=== PATIENT | female | born 1965 | race Caucasian/White ===

== ENCOUNTER 2016-07-26 15:51 | Observation (INO) | payer BC ==
[~2016-07-26] VITALS: Ht 172.7 cm; Wt 95.0 kg
--- NOTE | ~2016-07-26 | HEMODYNAMI ---
PATIENT:HENRY DELVALLE MEDICAL RECORD: [id number] : 63 [id number] ADMISSION DATE: 07/26/16 Generatedon:07/27/201615:52 Patient name: HENRY DELVALLE Patient #: [id number] : 1965 Date of study: 07/27/2016 Page: Of Hemodynamic Procedure Report Patient Data Patient Demographics Procedure consent was obtained First Name: HENRY Gender: Female Last Name: ADELIA : 1965 [facility] Initial: FABRICE Age: 51 year(s) Patient #: [id number] Race: Unknown SSN: [id number] Additional ID: [id number] Contact details Address: [address] [address] State: [place] City: [place] Zip code: [address] Past Medical History Allergies Allergen Reaction Date Comments Reported Other allergy 07/27/2016 Procardia, Macrodanatin Admission Admission Data Admission Date: 07/26/2016 Admission Time: 19:09 Arrival Date: 07/27/2016 Arrival Time: 0:00 Room #: D.2115 Lab Results Lab Result Date: 07/27/2016 Lab Result Time: 0:00 Biochemistry Name Units Result Min Max BUN mg/dl 12 --(-*--)-- 7 18 Creatinine mg/dl 0.7 --(*---)-- 0.6 1.3 CBC Name Units Result Min Max Hemoglobin g/dl 10.7 *-(----)-- 13.5 17.5 Procedure Procedure Types Cath Procedure Diagnostic Procedure LHC LHC w/Coronaries Miscellaneous Procedures Moderate Sedation up to 15 minutes Procedure Description Procedure Date Procedure Date: 07/27/2016 Procedure Start Time: 15:40 Procedure End Time: 15:50 Procedure Staff Name Function Chaparro Fagan MD Performing Physician Clarissa Bentley RT Scrub Teresa Menezes RN Nurse Flakita Orourke RT Monitor Procedure Data Cath Procedure Fluoroscopy Diagnostic fluoroscopy Total fluoroscopy Time: 1.5 time: 1.5 min min Diagnostic fluoroscopy Total fluoroscopy dose: 323 dose: 323 mGy mGy Contrast Material Contrast Material Type Amount (ml) Isovue 300 86 Entry Location Entry Primary Successful Side Size Upsize Upsize Entry Closure Figueroa ccessful Closure Location (Fr) 1 (Fr) 2 (Fr) Remarks Device Remarks Radial Right 6 Fr Mechanical tr b artery Short Compression Estimated blood loss: 10 ml Diagnostic catheters Device Type Used For End Catheter Placement Cordis RBL 4 catheter (NO Procedure CHARGE) Procedure Complications No complications Procedure Medications Medication Administration Route Dosage Oxygen NC 2 l/min Lidocaine 2% added to field 20 Heparin Flush Bag added to field 2 bags (1000units/500ml NS) 0.9% NaCl I.V. 100 ml/hr Radial Cocktail I.A. 1 syringe (Verapomil 2mg/Nitro 400mcg/Heparin 1500units) Versed I.V. 2 mg Fentanyl I.V. 100 mcg Versed I.V. 2 mg Fentanyl I.V. 100 mcg Versed I.V. 2 mg Fentanyl I.V. 100 mcg Versed I.V. 1 mg Fentanyl I.V. 50 mcg Hemodynamics Rest HGB: 10.7 (g/dl) Heart Rate: 108 (bpm) Pressure Samples Time Site Value (mmHg) Purpose Heart Use Rate(bpm) 15:43 LV 128/6,11 Snapshot 108 15:44 AO 117/90(103) Pullback 109 15:44 LV 118/14,14 Pullback 109 Gradients Valve Time Site 1 Site 2 Mean SEP/DFP Peak To Heart Use (mmHg) (sec/min) Peak Rate (mmHg) (bpm) Aortic 15:44 LV AO 0 4 1 109 118/14,14 117/90(103) Calculations Valve P-P Mean Valve Index Valve Source Name Gradient Area Flow (cm2) Aortic 1 0 1 0 Snapshots Pre Cath Intra NCS Post Cath Vital Signs Time Heart Resp SPO2 NIBP (mmHg) Rhythm Pain Sedation Rate (ipm) (%) Status Level (bpm) 15:30:58 96 17 95 165/92(147) NSR 0 (11) 10(A) , No pain 15:35:24 97 18 94 168/110(127) NSR 0 (11) 10(A) , No pain 15:39:51 95 19 95 174/108(131) NSR 0 (11) 10(A) , No pain 15:44:07 110 18 93 126/82(106) NSR 0 (11) 10(A) , No pain 15:48:18 110 16 94 128/90(124) NSR 0 (11) 10(A) , No pain 15:50:19 109 19 95 No Cuff NSR 0 (11) 10(A) , No pain Medications Time Medication Route Dose Verified Delivered Reason Notes Effectiveness by by 15:30:44 Oxygen NC 2 l/min Chaparro Buffie used for [facility]. Fady Menezes RN procedure 15:30:50 Lidocaine 2% added 20ml Chaparro Chaparro for local to vial [facility] anesthetic field MD KILPATRICK 15:30:56 Heparin Flush added 2 bags Chaparro Chaparro used for Bag to [facility] procedure (1000units/500ml field MD KILPATRICK NS) 15:39:20 Versed I.V. 2 mg Chaparro Buffie for sedation [facility] Fady Menezes RN, MD 15:39:31 Fentanyl I.V. 100 mcg Chaparro Buffie for sedation [facility] Fady Menezes RN, MD 15:42:13 Radial Cocktail I.A. 1 Chaparro Chaparro for (Verapomil syringe [facility] vasodilation 2mg/Nitro MD KILPATRICK 400mcg/Heparin 1500units) 15:42:35 Versed I.V. 2 mg Chaparro Buffie for sedation [facility] Fady Menezes RN, MD 15:42:39 Fentanyl I.V. 100 mcg Chaparro Buffie for sedation [facility]. Fady Menezes RN, MD 15:44:06 0.9% NaCl I.V. 100 Chaparro Buffie Per ml/hr St. Fady guerra MD 15:44:42 Versed I.V. 2 mg Chaparro Buffie for sedation [facility]. Fady Menezes RN, MD 15:44:46 Fentanyl I.V. 100 mcg Chaparro Buffie for sedation [facility]. Fady Menezes RN, MD 15:48:28 Versed I.V. 1 mg Chaparro Buffie for sedation [facility]. Fady Menezes RN, MD 15:48:33 Fentanyl I.V. 50 mcg Chaparro Buffie for sedation St. Fady Menezes RN, MD Procedure Log Time Note 15:03:43 Arrival Date: 07/27/2016 12:00:00 AM 15:04:05 Diagnostic Cath Status : Elective 15:08:26 Lab Result : Hemoglobin 10.7 g/dl 15:08: Lab Result : Creatinine 0.7 mg/dl 15:08: Lab Result : BUN 12 mg/dl 15:08:39 Teresa Menezes RN sent for patient. Start room use. 15:08:40 Time tracking: Regular hours 15:08:45 Plan of Care:Hemodynamics will remain stable., Cardiac rhythm will remain stable., Comfort level will be maintained., Respiratory function will remain adequate., Patient/ family verbilizes understanding of procedure., Procedure tolerated without complication., Recovers from procedure without complications.. 15:08:56 Patient received from Med II to CCL 3 Alert and oriented. Tansferred to table in Supine position. 15:09:03 H&P Date Dictated: 07/27/2016 Within 30 days and on chart.. 15:09:05 Pre-procedure instructions explained to patient. 15:09:07 Family in waiting room. 15:09:10 Patient NPO since Midnight. 15:09:31 Patient allergic to Other allergyProcardia, Macrodanatin 15:26:19 Warm blankets applied, and georgiana hugger turned on for patient comfort. 15:26:20 Correct patient and procedure confirmed by team. 15:26:21 Signed procedure consent form obtained from patient. 15:26:22 ECG and BP/O2 sat monitors applied to patient. 15:29:44 Vital chart was started 15:29:45 Baseline sample Acquired. 15:29:50 Rhythm: sinus rhythm 15:29:52 Full Disclosure recording started 15:30:07 Is the patient allergic to Iodine/contrast media? No. 15:30:14 Was the patient premedicated? No 15:30:15 Is patient on blood thinner?No 15:30:19 Patient diabetic? Yes. 15:30:20 If diabetic: On Metformin? Yes 15:30:24 If on Metformin: Last Dose? 07/26/2016 15:30:35 Snore? Yes 15:30:36 Sleep apnea? Yes 15:30:38 Deviated septum? No 15:30:39 Opens mouth fully? Yes 15:30:40 Sticks out tongue? Yes 15:30:44 Oxygen 2 l/min NC was given by Teresa Menezes RN; used for procedure; 15:30:47 Patient pain scale 0/10 ?. 15:30:50 Lidocaine 2% 20ml vial added to field was given by Chaparro Fagan MD; for local anesthetic; 15:30:55 IV patent on arrival in left forearm with 0.9% NaCl at O. 15:30:56 Heparin Flush Bag (1000units/500ml NS) 2 bags added to field was given by Chaparro Fagan MD; used for procedure; 15:31:00 Lab results completed and on chart. 15:31:04 Right Radial & Right Groin area was prepped with chlora-prep and draped in sterile fashion 15:31: Alarms reviewed by R. N. 15:31:05 Sharps counted by scrub and verified by R.N. 15:31:10 Physician paged 15::55 Use device set Radial Dx 15:32:00 Acist Syringe opened to sterile field. 15:32:00 Medline Cath Pack opened to sterile field. 15:32:01 Bag Decanter opened to sterile field. 15:32:02 Terumo 6Fr Slender Glidesheath opened to sterile field. 15:32:03 St Patel 260cm J .035 wire opened to sterile field. 15:32:04 Acist Hand Control opened to sterile field. 15:32:04 Acist Manifold opened to sterile field. 15:32:05 Tegaderm 4 x 4 opened to sterile field. 15:38:01 Physician arrived 15:38:01 --------ALL STOP TIME OUT------ 15:38:02 Final Timeout: patient, procedure, and site verified with staff and physician. All members of the team are in agreement. 15:38:04 Right Radial & Right Groin site verified by team. 15:38:08 Physical assessment completed. ASA score P 2 - A patient with mild systemic disease as per Chaparro Fagan MD. 15:38:11 Sedation plan: IV Moderate Sedation Versed, Fentanyl 15:39:20 Versed 2 mg I.V. was given by Teresa Menezes RN; for sedation; 15:39:31 Fentanyl 100 mcg I.V. was given by Teresa Menezes RN; for sedation; 15:39:52 Procedure started. 15:40:19 Local anesthetic to right radial artery with Lidocaine 2% by Chaparro Fagan MD.INITIAL ACCESS ONLY 15:40:28 A 6 Fr Short sheath was inserted into the Right Radial artery 15:42:05 Zero performed for pressure channel P1 15:42:13 Radial Cocktail (Verapomil 2mg/Nitro 400mcg/Heparin 1500units) 1 syringe I.A. was given by Chaparro Fagan MD; for vasodilation; 15:42:17 Zero performed for pressure channel P1 15:42:35 Versed 2 mg I.V. was given by Teresa Menezes RN; for sedation; 15:42:39 Fentanyl 100 mcg I.V. was given by Teresa Menezes RN; for sedation; 15:42:48 Zero performed for pressure channel P1 15:42:51 Zero performed for pressure channel P1 15:43:24 LV angiography performed. 15:43:44 LV gram done using CALVO 15:43:50 EF : 55 % 15:44:06 0.9% NaCl 100 ml/hr I.V. was given by Teresa Menezes RN; Per physician; 15:44:20 A AIRSIS RBL 4 catheter (NO CHARGE) was advanced over the wire and used for Procedure. 15:44:42 Versed 2 mg I.V. was given by Teresa Menezes RN; for sedation; 15:44:44 LCA angiography performed. 15:44:46 Fentanyl 100 mcg I.V. was given by Teresa Menezes RN; for sedation; 15:46:28 RCA angiography performed. 15:47:01 Catheter removed. 15:47:14 Terumo TR Band Standard opened to sterile field. 15:47:32 Sheath removed intact; hemostasis achieved with Mechanical Compression to the Right Radial artery. 15:47:34 Procedure ended.(Physican Out) 15:47:49 Fluoroscopy time 01.50 minutes. 15:48:05 Fluoroscopy dose: 323 mGy 15:48:05 Flurop Dose total: 323 15:48:13 Contrast amount:Isovue 300 86ml. 15:48:26 Sharps counted by scrub and verified by R.N. 15:48:28 Versed 1 mg I.V. was given by Teresa Menezes RN; for sedation; 15:48:33 Fentanyl 50 mcg I.V. was given by Teresa Menezes RN; for sedation; 15:48:36 TR band inflated with 10cc of air. 15:49:02 Post right radial artery:stable 15:49:13 Post Procedure Pulses reassessed and unchanged 15:49:20 Post-procedure physical assessment completed. ASA score P 2 - A patient with mild systemic disease as per Chaparro Fagan MD. 15:49:25 Post procedure rhythm: unchanged. 15:49:29 Estimated blood loss: 10 ml 15:49:31 Post procedure instruction explained to patient.Patient verbalizes understanding. 15:49:38 Procedure and supply charges have been captured, reviewed, submitted and are correct. 15:49:58 Procedure Complication : No complications 15:50:01 Vital chart was stopped 15:50:04 Report given to [facility] II. 15:50:09 Patient transfered to [facility] with Bed. 15:50:12 Procedure ended. 15:50:12 Full Disclosure recording stopped 15:50:17 End room use (Document Last) Device Usage Item Name Manufacture Quantity Catalog Hospital Part Current Minimal Lot# / Number Charge Number Stock Stock Serial# Code Acist Acist 1 97782 [id number] [id number] 348482 20 Syringe Medical [employer] Inc Medline Cardinal 1 [id number] 037310 16044 442376 5 Cath Pack Health Bag Microtek 1 2002S [id number] 84546 226920 5 Decanter Medical Inc. Terumo 6Fr Terumo 1 [id number] 847049 914755 059218 [address] St Patel 1 694714 749372 597125 679643 30 260cm J .035 wire Acist Hand Acist 1 08370 246998 242846 263282 5 Control Medical [employer] Inc Acist Acist 1 05522 355364 928759 748398 5 Manifold Medical [employer] Inc Tegaderm 4 3M 1 1626W 796329 000818 891251 5 x 4 Cordis RBL Cardinal 1 [id number] 134277 561852 5 4 catheter Health (NO CHARGE) Terumo TR Terumo 1 [id number] 479741 326853 542891 40 Band Standard Signature Audit Counselor Stage Time Signature Unsigned Intra-Procedure 07/27/2016 Flakita Orourke 3:52:48 PM RT(R) Signatures Monitor : Flakita Orourke Signature : RT Date : Time : [facility] [address] [place] [address]
[~2016-07-26 15:51] MED LIST: ATIVAN1 MG PO; BUPROPION XL300 MG PO; DURAGESIC1 PATCH .3 TRANSDERM; ESTRACE2 MG PO; GLUCOPHAGE500 MG PO; HYDROCODONE-APA1 TAB PO; LANTUS SOL100 UNIT/1 SC; METOPROLOL TAR100 M1 PO; MEVACOR PO; NEURONTIN600 MG PO; PHENERGAN25 M1 PO; PREVACID30 MG PO; REGLAN10 MG PO; ZANAFLEX4 MG PO
[2016-07-26 17:39] LABS: BASOPHILS 0.2 % (0.0-2.0); EOSINOPHILS 2.5 % (0-7); HEMATOCRIT 34.1 % (36.0-48.0); HEMOGLOBIN 10.7 g/dL (12-16); IMMATURE GRANULOCYTES 0.4 % (0-5); LYMPHOCYTES 17.5 % (15-50); MCH 30.8 pg (26.0-34.0); MCHC 31.4 g/dL (31.0-37.0); MCV 98.3 fL (80.0-100.0); MEAN PLATELET VOLUME 10.6 fL (7.4-10.4); MONOCYTES 6.5 % (2-11); NEUTROPHILS 72.9 % (40-80); PLATELET COUNT 235 10x3/uL (130-400); RBC 3.47 10x6/uL (4.00-5.40); RDW 14.4 % (11.5-14.5); WBC 14.1 10x3/uL (4.8-10.8)
[2016-07-26 17:56] LABS: ALBUMIN 3.5 g/dL (3.4-5.0); ALKALINE PHOSPHATASE 96 U/L (46-116); ALT (SGPT) 28 U/L (10-68); BILIRUBIN - TOTAL 0.11 mg/dL (0.2-1.3); CALC OSMOLALITY 274 mosm/kg (275-300); CALCIUM 9.4 mg/dL (8.5-10.1); CARBON DIOXIDE 26.6 mmol/L (21.0-32.0); CHLORIDE - SERUM 99 mmol/L (98-107); CREATININE - SERUM 0.7 mg/dL (0.6-1.3); POTASSIUM - SERUM 4.2 mmol/L (3.5-5.1); PROTEIN - SERUM 6.9 g/dL (6.4-8.2); SODIUM 137 mmol/L (136-145); UREA NITROGEN 12 mg/dL (7-18); eGFR NON AFRICAN AMERICAN > 90 mL/min (90-120)
[2016-07-26 18:07] LABS: GLUCOSE 121 mg/dL (74-106)
[2016-07-26 18:11] LABS: CHOL - HDL RATIO 6.2 ratio (2.3-4.1); CHOLESTEROL, TOTAL 256 mg/dL (0-200); CKMB 1.6 U/L (0.0-3.6); CREATINE KINASE 88 UL (21-215); HDL CHOLESTEROL 41 mg/dL (32-96); LDL CHOLESTEROL 144 mg/dL (0-100); LDL-HDL RATIO 3.5 ratio (1.5-3.5); TRIGLYCERIDE 356 mg/dL (30-200)
[2016-07-26 18:30] LABS: TROPONIN-I < 0.017 ng/mL (0.000-0.060)
[2016-07-26 20:00] VITALS: BP 185/96
--- NOTE | 2016-07-26 20:25 | NUR ---
RECEIVED PT TO ROOM 2114 ALERT O X3. ASSESS AND HISTORY COMPLETE. HOME MEDS REVIEWED WITH PT AND MEDREC UPDATED.
[2016-07-26] MEDS ORDERED: OXYCONTIN30 MG PO (20:29)
[2016-07-26] MEDS ORDERED: NEXIUM40 MG PO (20:32)
[2016-07-26] MEDS ORDERED: ZOLOFT50 MG PO (20:33)
[2016-07-26] MEDS ORDERED: ZOLOFT100 MG PO (20:33)
[2016-07-26] MEDS ORDERED: HUMALOG 30100 UNITS/ SC (20:34)
[2016-07-26 20:39] VITALS: BP 185/96; BMI 31.8
--- NOTE | 2016-07-26 23:37 | NUR ---
BANJO REPAIRER AT BEDSIDE FOR VS, NEEDS ADDRESSED AT THIS TIME. CALL LIGHT IN REACH. CONT TO MONITOR.
[2016-07-27] VITALS: BP 187/89
[2016-07-27 04:00] VITALS: BP 191/98
[2016-07-27 07:52] VITALS: BP 184/95
[2016-07-27 09:55] LABS: BASOPHILS 0.1 % (0.0-2.0); EOSINOPHILS 2.4 % (0-7); HEMATOCRIT 34.1 % (36.0-48.0); HEMOGLOBIN 10.7 g/dL (12-16); IMMATURE GRANULOCYTES 0.3 % (0-5); LYMPHOCYTES 21.2 % (15-50); MCH 30.3 pg (26.0-34.0); MCHC 31.4 g/dL (31.0-37.0); MCV 96.6 fL (80.0-100.0); MEAN PLATELET VOLUME 10.3 fL (7.4-10.4); MONOCYTES 5.5 % (2-11); NEUTROPHILS 70.5 % (40-80); PLATELET COUNT 231 10x3/uL (130-400); RBC 3.53 10x6/uL (4.00-5.40); RDW 14.1 % (11.5-14.5)
[2016-07-27 10:08] LABS: WBC 9.1 10x3/uL (4.8-10.8)
[2016-07-27 10:17] LABS: CALC OSMOLALITY 273 mosm/kg (275-300); CALCIUM 9.6 mg/dL (8.5-10.1); CARBON DIOXIDE 26.4 mmol/L (21.0-32.0); CHLORIDE - SERUM 97 mmol/L (98-107); CREATININE - SERUM 0.7 mg/dL (0.6-1.3); GLUCOSE 226 mg/dL (74-106); POTASSIUM - SERUM 4.5 mmol/L (3.5-5.1); SODIUM 134 mmol/L (136-145); UREA NITROGEN 11 mg/dL (7-18); eGFR NON AFRICAN AMERICAN > 90 mL/min (90-120)
--- NOTE | 2016-07-27 10:37 | NUR ---
TELEMETRY SR. NO C/O C/P NOTED. NPO FOR [facility]. CONSENTS SIGNED.
[2016-07-27 11:34] VITALS: BP 185/99
--- NOTE | 2016-07-27 15:30 | NUR ---
PRE-OPS GIVEN. TO RFID TECHNICIAN BY BED.
--- NOTE | 2016-07-27 16:12 | NUR ---
BACK FROM TODDLER GUIDE. VS WNL. RIGHT WRIST STABLE WITH TR BAND INTACT. WILL MONITOR.
[2016-07-27] MEDS ORDERED: PRAVACHOL20 MG PO (16:31)
--- NOTE | 2016-07-27 18:10 | NUR ---
TR BAND DCD WITHOUT BLEEDING OR HEMATOMA NOTED.
--- NOTE | 2016-07-27 18:17 | NUR ---
IV AND TELEMETRY DCD. DC PLANS GIVEN. UNDERSTANDING VOICED. ESCORTED TO CAR BY W/C.
--- NOTE | 2016-07-30 10:40 | HP ---
PATIENT: GALA BUNN MEDICAL RECORD: [id number] ACCOUNT: [id number] LOCATION:[facility].2115 : 63 ADMISSION DATE: 07/26/16 HISTORY AND PHYSICAL EXAMINATION HISTORY OF PRESENT ILLNESS: Gala Bunn is a 51-year-old lady with a history of hypertension. She has an onset yesterday of chest tightness and pressure, accompanied by marked nausea, dizziness, diaphoresis and been having intermittent problems with her blood sugars as of late. She has some baseline dyspnea on exertion, not been exercising. Enzymes are currently negative. ECG without acute change. Has had a history of hyperlipidemia, strong history of coronary artery disease, which include arthritis. PAST MEDICAL HISTORY: Includes: 1. History of hypertension. 2. Peripheral neuropathy. 3. Gastroesophageal reflux disease. 4. Diabetes mellitus. MEDICATIONS: Includes metformin 500 b.i.d., Reglan 10 and 20 a.c. and q.h.s., ____ 40 q. day, OxyContin 30 q.12, Ativan 1 mg b.i.d., Alsip 10/325 q. day, Neurontin 600 t.i.d., Lopressor 100 q. day, Phenergan p.r.n. ALLERGIES: PROCARDIA, WHICH CAUSES EDEMA, MACRODANTIN CAUSES RASH. SOCIAL HISTORY: She lives here in [place]. Currently employed. She takes care of her ADLs, but no exercise program. REVIEW OF SYSTEMS: The patient reports easy bruising but reports no swollen glands. The patient reports no fever, no night sweats, no significant weight gain, no significant weight loss. No significant exercise tolerance. The patient reports no dry eyes, no irritation, no vision change. Patient reports no difficulty hearing and no ear pain. Patient reports no frequent nose bleeds or nose and sinus problems. Patient reports on arm pain on exertion. No shortness of breath while lying down. No history of heart murmur. Patient reports no cough, no wheezing or coughing up blood. Patient reports no abdominal pain, no vomiting. Normal appetite. No diarrhea and not vomiting blood. No nausea and no constipation. Patient reports no incontinence. No difficulty urinating. No hematuria. No increased frequency. Patient reports no muscle aches. No weakness, no arthralgias, no back pain. No swelling of the extremities. Patient reports no abnormal mole, no jaundice, no rashes. Reports no loss of consciousness. No weakness and no numbness. No seizures, dizziness, or headaches. The patient reports no depression, no sleep disturbance, feeling safe in a relationship and no alcohol abuse. Patient reports on fatigue. Reports no runny nose or sinus pressure. No itching, no hives, and no frequent sneezing. PHYSICAL EXAMINATION: GENERAL: Pleasant female in no acute distress, appears stated age, [age], 77 and regular. HEENT: Normocephalic, atraumatic. NECK: No JVD or bruit. HEART: Regular. LUNGS: Weiner clear. ABDOMEN: Soft, nontender. HISTORY AND PHYSICAL [id number] [facility] EXTREMITIES: Pulses 2+ with no edema. DIAGNOSTIC DATA: ECG without acute change. IMPRESSION: Acute coronary syndrome, multiple risk factors. PLAN: For diagnostic angiography, intervention based on above. TRANSINT:[id number] Voice Confirmation ID: [id number] DOCUMENT ID: [id number] PER SCHROEDER MD at 1040 CC: [id number] DICTATION DATE: 07/27/16 08 FILLER BLENDER: 07/27/16 1018 DIS IN 07/27/16 [id number] [place] [address]
--- NOTE | 2016-07-30 10:40 | OP ---
PATIENT NAME: HENRY DELVALLE MEDICAL RECORD: [id number] :63 LOCATION:D.M2 D.2115 ADMISSION DATE:07/26/16 SURGEON: PER SCHROEDER MD DATE OF OPERATION: 07/27/2016 PROCEDURE: Left heart catheterization, selective coronary angiography, right radial approach. CATHETERS: A 5 sheath, Ranjit catheter. The procedure was tolerated and the patient returned to the noel. Sheath was removed. TR band was placed. FINDINGS: Left ventriculography in the 30-degree CALVO view: Normal wall motion and normal systolic function. CORONARY ANATOMY: LEFT MAIN: Left main free of disease. LAD: LAD is free of disease in the diagonal system. CIRCUMFLEX: Free of disease in the marginal system. RIGHT CORONARY ARTERY: At distal PDA shows a total occlusion with left to right collaterals. IMPRESSION: Single-vessel disease involving distal PDA. PLAN: For medical management. We will add statin therapy at this point. TRANSINT:[id number] Voice Confirmation ID: [id number] DOCUMENT ID: [id number] PER SCHROEDER MD at 1040 CC: [id number] DICTATION DATE: 07/27/16 1556 DIRECTOR OF LOSS PREVENTION: 07/27/16 2315 DIS IN 07/27/16 [facility] [address] [place] [address]
--- NOTE | 2016-08-19 14:36 | DS ---
PATIENT:HENRY DELVALLE :63 MEDICAL RECORD: [id number] DISCHARGE SUMMARY ADMISSION DATE: 07/26/16 DISCHARGE DATE: 07/27/16 DISCHARGE DIAGNOSES: 1. Acute coronary syndrome/small vessel disease. 2. Dyslipidemia. 3. Diabetes mellitus. 4. Hypertension. BRIEF HISTORY AND HOSPITAL COURSE: A 51-year-old female with a history of diabetes mellitus, admitted with acute coronary syndrome, found to have small vessel disease, discharged home in good condition on medical therapy. ACTIVITY: As tolerated. DIET: An 1800 calorie ADA diet. FOLLOWUP: In the office in 2-3 weeks. TRANSINT:[id number] Voice Confirmation ID: [id number] DOCUMENT ID: [id number] PER SCHROEDER MD at 1436 CC: [id number] DICTATION DATE: 08/17/16 1435 TIGER MACHINE OPERATOR: 08/18/16 0448 DIS IN 07/27/16 [id number] [place] [address]
== END 2016-07-27 18:17 | disposition home or self-care (01) ==
LOC: D.ER 15:51 → OBSVTIME 19:09 → D.M2 19:09
PROVIDERS: Emergency Medicine; ADMIT Internal Medicine Interventional Cardiology
DX: I24.9 Acute ischemic heart disease, unspecified (principal); I25.10 Atherosclerotic heart disease of native coronary artery without angina pectoris; E11.9 Type 2 diabetes mellitus without complications; K21.9 Gastro-esophageal reflux disease without esophagitis

== ENCOUNTER 2018-05-01 14:03 | Inpatient (IN) | payer BC ==
[~2018-05-01] VITALS: Ht 172.7 cm; Wt 82.1 kg
--- NOTE | ~2018-05-01 | MORECARE ---
CASE MANAGEMENT DISCHARGE SUMMARY PATIENT: HENRY DELVALLE UNIT: [id number] ADM DATE: 05/01/18 AGE: 53 : 63 SEX: F ROOM/BED: D.2201 AUTHOR: SHER DESAI PHYSICIAN: REFERRING PHYSICIAN: BINU CAICEDO MD DATE OF SERVICE: 05/05/18 Discharge Plan Patient Name: HENRY DELVALLE Facility: [facility]:[place] : 1965 Planned Disposition: Home Anticipated Discharge Date: Discharge Date: Expected LOS: Initial Reviewer: [email or web address] Initial Review Date: 05/01/2018 Generated: 05/05/18 5:49 pm Comments DCP- Discharge Planning Updated by [email or web address]: Zena Escobar on 05/05/18 3:[address] Patient Name: HENRY DELVALLE Encounter No: [id number] : 1965 Primary Insurance: [employer] PPO Anticipated DC Date: Planned Disposition: Home External Planned Provider: : DCP follow-up note: Patient and family in agreement with discharge plan. No changes to plan. Case management will follow and assist as needed. Zena Escobar DCP- Discharge Planning Updated by [email or web address]: Zena Escobar on 05/02/18 3:[address] Patient Name: HENRY DELVALLE Admission Status: ER Accout number: [id number] Admission Date: 05-01-2018 : 1965 Admission Diagnosis: Attending: BINU CAICEDO Current LOS: 1 Anticipated DC Date: Planned Disposition: Home Primary Insurance: [employer] [place] PPO Discharge Planning Comments: CM met with patient to assess discharge planning needs. Patient lives independently at home with her and plans to return there at DC. She stated that she is safe to go back home. She denies any HH or DME needs and does not need any when she is DC. CM will continue to follow and assist with DC planning Technical Support Engineer: Zena Escobar DCPIA - Discharge Planning Initial Assessment Updated by [email or web address]: Zena Escobar on 05/02/18 4:37 pm * Is the patient Alert and Oriented? Yes * How many steps to enter\exit or inside your home? 15 * PCP BRETT * Pharmacy [facility] * Preadmission Environment Home with Family * ADLs Independent * Equipment None * List name and contact numbers for known caregivers / representatives who currently or will assist patient after discharge: MARIANNE (SPOSE) [phone] * Verbal permission to speak to the caregivers and representatives has been obtained from the patient. Yes * Community resources currently utilized None * Additional services required to return to the preadmission environment? No * Can the patient safely return to the preadmission environment? Yes * Has this patient been hospitalized within the prior 30 days at any hospital? No Last DP export: 05/02/18 3:40 p Patient Name: HENRY DELVALLE Page [id number] at 1649 All edits/amendments must be made on the electronic document DICTATION DATE: 05/05/181647 DRY MILL WORKER: [email or web address] 05/05/181647 RPT#: [id number] DC DATE: STATUS: ADM IN [facility] [address] [place] [address] END OF REPORT
--- NOTE | ~2018-05-01 | MORECARE ---
CASE MANAGEMENT DISCHARGE SUMMARY PATIENT: HENRY DELVALLE UNIT: [id number] ADM DATE: 05/01/18 AGE: 53 : 63 SEX: F ROOM/BED: D.2201 AUTHOR: SHER DESAI PHYSICIAN: REFERRING PHYSICIAN: BINU CAICEDO MD DATE OF SERVICE: 05/08/18 Discharge Plan Patient Name: HENRY DELVALLE Facility: [facility]:[place] : 1965 Planned Disposition: Home Anticipated Discharge Date: Discharge Date: 05/05/2018 Expected LOS: 0 Initial Reviewer: [email or web address] Initial Review Date: 05/01/2018 Generated: 05/08/18 12:29 pm Comments DCP- Discharge Planning Updated by [email or web address]: Zena Escobar on 05/05/18 3:[address] Patient Name: HENRY DELVALLE Encounter No: [id number] : 1965 Primary Insurance: [employer] PPO Anticipated DC Date: Planned Disposition: Home External Planned Provider: : DCP follow-up note: Patient and family in agreement with discharge plan. No changes to plan. Case management will follow and assist as needed. Zena Escobar DCP- Discharge Planning Updated by [email or web address]: Zena Escobar on 05/02/18 3:[address] Patient Name: HENRY DELVALLE Admission Status: ER Accout number: [id number] Admission Date: 05-01-2018 : 1965 Admission Diagnosis: Attending: BINU CAICEDO Current LOS: 1 Anticipated DC Date: Planned Disposition: Home [facility] Discharge Planning Comments: CM met with patient to assess discharge planning needs. Patient lives independently at home with her and plans to return there at DC. She stated that she is safe to go back home. She denies any HH or DME needs and does not need any when she is DC. CM will continue to follow and assist with DC planning Distributor Operator: Zena Escobar DCPIA - Discharge Planning Initial Assessment Updated by [email or web address]: Zena Escobar on 05/02/18 4:37 pm * Is the patient Alert and Oriented? Yes * How many steps to enter\exit or inside your home? 15 * PCP BRETT * Pharmacy [facility] * Preadmission Environment Home with Family * ADLs Independent * Equipment None * List name and contact numbers for known caregivers / representatives who currently or will assist patient after discharge: MARIANNE ([employer]) [phone] * Verbal permission to speak to the caregivers and representatives has been obtained from the patient. Yes * Community resources currently utilized None * Additional services required to return to the preadmission environment? No * Can the patient safely return to the preadmission environment? Yes * Has this patient been hospitalized within the prior 30 days at any hospital? No Last DP export: 05/05/18 3:49 p Patient Name: HENRY DELVALLE Page [phone] at 1129 All edits/amendments must be made on the electronic document DICTATION DATE: 05/08/181127 CORE DRILL OPERATOR: [email or web address] 05/08/181127 RPT#: [id number] DC DATE:05/05/18 STATUS: DIS IN [facility] [address] [place] [address] END OF REPORT
--- NOTE | ~2018-05-01 | MORECARE ---
CASE MANAGEMENT DISCHARGE SUMMARY PATIENT: HENRY DELVALLE UNIT: [id number] ADM DATE: 05/01/18 AGE: 53 : 63 SEX: F ROOM/BED: D.2201 AUTHOR: SHER DESAI PHYSICIAN: REFERRING PHYSICIAN: BINU CAICEDO MD DATE OF SERVICE: 05/02/18 Discharge Plan Patient Name: HENRY DELVALLE Facility: [facility]:[place] : 1965 Planned Disposition: Home Anticipated Discharge Date: Discharge Date: Expected LOS: Initial Reviewer: [email or web address] Initial Review Date: 05/01/2018 Generated: 05/02/18 5:39 pm Comments DCP- Discharge Planning Updated by [email or web address]: Zena Escobar on 05/02/18 3:[address] Patient Name: HENRY DELVALLE Admission Status: ER Accout number: [id number] Admission Date: 05-01-2018 : 1965 Admission Diagnosis: Attending: BINU CAICEDO Current LOS: 1 Anticipated DC Date: Planned Disposition: Home Primary Insurance: [employer] PPO Discharge Planning Comments: CM met with patient to assess discharge planning needs. Patient lives independently at home with her and plans to return there at DC. She stated that she is safe to go back home. She denies any HH or DME needs and does not need any when she is DC. CM will continue to follow and assist with DC planning Shampooer: Zena Escobar DCPIA - Discharge Planning Initial Assessment Updated by [email or web address]: Zena Escobar on 05/02/18 4:37 pm * Is the patient Alert and Oriented? Yes * How many steps to enter\exit or inside your home? 15 * PCP [facility] * Pharmacy [facility] * Preadmission Environment Home with Family * ADLs Independent * Equipment None * List name and contact numbers for known caregivers / representatives who currently or will assist patient after discharge: MARIANNE ([facility] [place]) [phone] * Verbal permission to speak to the caregivers and representatives has been obtained from the patient. Yes * Community resources currently utilized None * Additional services required to return to the preadmission environment? No * Can the patient safely return to the preadmission environment? Yes * Has this patient been hospitalized within the prior 30 days at any hospital? No Patient Name: HENRY DELVALLE Page 76032 at 1640 All edits/amendments must be made on the electronic document DICTATION DATE: 05/02/181638 STAPLE CUTTER: [email or web address] 05/02/181638 RPT#: [id number] DC DATE: STATUS: ADM IN [facility] [address] [place] [address] END OF REPORT
--- NOTE | ~2018-05-01 | EC ---
PATIENT:HENYR DELVALLE DATE OF SERVICE: 05/01/18 SEX: F MEDICAL RECORD: [id number] DATE OF : 63 LOCATION:D[facility] [place] AGE OF PATIENT: 53 ADMISSION DATE: 05/01/18 REFERRING PHYSICIAN: INTERPRETING PHYSICIAN: PER SCHROEDER MD ECHOCARDIOGRAM REPORT ECHO CHARGES 4 ECHO COMPLETE Date: 05/04/18 CLINICAL DIAGNOSIS: HTN ECHOCARDIOGRAPHIC MEASUREMENTS (adult normal given) AC root (d.<3.7cm) 3.4 cm LV Septum d (<1.2 cm> 1.2 cm Valve Excursion 1.3 cm LV Septum (systole) 1.5 cm Left Atria (s.<4.0cm> 4.3 cm LVPW d(<1.2cm) 1.2 cm RV (d.<2.3cm) 3.4 cm LVPW (sytole) 1.6 cm LV diastole(<5.6CM) 5.2 cm MV E-F(>70mm/sec) cm LV systole 4.0 cm LVOT Diameter 1.8 cm MV exc.(>10mm) 1.6 cm Est.ejection fraction (50-75%) % DOPPLER: LVIT cm/sec A 132 cm/sec E 108 cm/sec LA cm/sec RVSP 36 mmHg LVOT 142 cm/sec AOP1/2T m/s Asc. Ao 174 cm/sec RVOT 89 cm/sec RA cm/sec PA 158 cm/sec AV Gradient Peak 12.13mmHg AV Mean 6.14 mmHg AV Area 2.6 cm MV Gradient Peak 7.36 mmHg MV Mean 2.48 mmHg MV Area cm COMMENTS: Bench Press Operator: 2 BRYNO MATHEW Manager Image: 3 Dr. Fagan TAPE# PACS Pericardial Effusion N DATE OF SERVICE: 05/04/2018 Adequate 2D echo, color flow and spectral Doppler, and M-mode. Borderline LVH. LV internal dimension is normal. Wall motion is normal. EF is greater than or equal to 55%. Aortic valve is tricuspid. No evidence of stenosis on Doppler interrogation. Left atrium dilated at 4.3 cm. Mitral valve shows no prolapse. Trace MR. Right-sided chambers grossly normal. Trace TR. TRANSINT:[id number] Voice Confirmation ID: [id number] DOCUMENT ID: [id number] ECHOCARDIOGRAM REPORT [id number] HENRY DELVALLE GREGORY A MD CC: [id number] DICTATION DATE: 05/04/18 1228 COMMUNICATIONS ENGINEERING TECHNICIAN: 05/04/18 1248 ADM IN [place] [id number] [place] [id number]
[~2018-05-01 14:03] MED LIST changes: +HUMALOG 30100 UNITS/ SC; -METOPROLOL TAR100 M1 PO; +METOPROLOL TART50 MG PO; +NEXIUM40 MG PO; +NORCO 10-325 TA1 TAB PO; +OXYCONTIN30 MG PO; +PRAVACHOL20 MG PO; +ZOLOFT100 MG PO; +ZOLOFT50 MG PO
[2018-05-01 15:30] VITALS: BP 99/48
[2018-05-01 15:35] LABS: HEMATOCRIT 32.4 % (36.0-48.0); HEMOGLOBIN 9.5 g/dL (12-16); MCH 23.8 pg (26.0-34.0); MCHC 29.3 g/dL (31.0-37.0); MCV 81.2 fL (80.0-100.0); MEAN PLATELET VOLUME 11.3 fL (7.4-10.4); PLATELET COUNT 278 10x3/uL (130-400); RBC 3.99 10x6/uL (4.00-5.40); WBC 21.5 10x3/uL (4.8-10.8)
[2018-05-01 15:52] LABS: ALBUMIN 3.5 g/dL (3.4-5.0); ALKALINE PHOSPHATASE 131 U/L (46-116); ALT (SGPT) 33 U/L (10-68); BILIRUBIN - TOTAL 0.47 mg/dL (0.2-1.3); CALC OSMOLALITY 272 mosm/kg (275-300); CALCIUM 9.6 mg/dL (8.5-10.1); CARBON DIOXIDE 22.7 mmol/L (21.0-32.0); CHLORIDE - SERUM 96 mmol/L (98-107); CREATININE - SERUM 1.7 mg/dL (0.6-1.3); GLUCOSE 203 mg/dL (74-106); POTASSIUM - SERUM 5.2 mmol/L (3.5-5.1); PROTEIN - SERUM 7.4 g/dL (6.4-8.2); SODIUM 131 mmol/L (136-145); UREA NITROGEN 24 mg/dL (7-18); eGFR NON AFRICAN AMERICAN 33 mL/min (90-120)
[2018-05-01 16:01] LABS: CKMB 2.2 U/L (0.0-3.6); CREATINE KINASE 74 UL (21-215); MAGNESIUM - SERUM 1.7 mg/dL (1.8-2.4); TROPONIN-I < 0.017 ng/mL (0.000-0.060)
[2018-05-01 16:07] LABS: APPEARANCE HAZY (CLEAR); BILIRUBIN NEGATIVE (NEGATIVE); COLOR DK YELLOW (YELLOW); GLUCOSE NEGATIVE (NEGATIVE); KETONE NEGATIVE (NEGATIVE); NITRITE NEGATIVE (NEGATIVE); PROTEIN TRACE mg/dL (NEGATIVE); SPECIFIC GRAVITY 1.025 (1.005-1.020); UROBILINOGEN NORMAL (NORMAL)
[2018-05-01 16:10] LABS: UDS - AMPHET POSITIVE QUAL (NEGATIVE); UDS - BARB NEGATIVE QUAL (NEGATIVE); UDS - BENZO POSITIVE QUAL (NEGATIVE); UDS - COCAINE NEGATIVE QUAL (NEGATIVE); UDS - OPIATE POSITIVE QUAL (NEGATIVE); UDS - PCP NEGATIVE QUAL (NEGATIVE); UDS - THC NEGATIVE QUAL (NEGATIVE)
[2018-05-01 16:11] LABS: RED CELLS - URINE OCC /hpf (0-5); WHITE CELLS - URINE OCC /hpf (0-5)
[2018-05-01 16:13] LABS: BACTERIA MANY /hpf (NONE SEEN)
[2018-05-01 16:30] VITALS: BP 91/47
[2018-05-01 16:56] LABS: EOSINOPHILS 3 % (0-7); LYMPHOCYTES 3 % (15-50); MONOCYTES 1 % (2-11); NEUTROPHILS 88 % (40-80); PLATELET ESTIMATE NORMAL
[2018-05-01 17:30] VITALS: BP 98/45
[2018-05-01 18:30] VITALS: BP 102/49
[2018-05-02 02:14] VITALS: BP 97/50
[2018-05-02 05:08] LABS: BASOPHILS 0.1 % (0-2); HEMATOCRIT 26.2 % (36.0-48.0); HEMOGLOBIN 7.7 g/dL (12-16); IMMATURE GRANULOCYTES 0.3 % (0-5); LYMPHOCYTES 6.7 % (15-50); MCH 23.8 pg (26.0-34.0); MCHC 29.4 g/dL (31.0-37.0); MCV 81.1 fL (80.0-100.0); MEAN PLATELET VOLUME 11.2 fL (7.4-10.4); MONOCYTES 6.9 % (2-11); RBC 3.23 10x6/uL (4.00-5.40); RDW 17.2 % (11.5-14.5)
[2018-05-02 05:33] LABS: PLATELET COUNT 218 10x3/uL (130-400); WBC 15.4 10x3/uL (4.8-10.8)
[2018-05-02 05:45] LABS: ALKALINE PHOSPHATASE 145 U/L (46-116); BILIRUBIN - TOTAL 0.29 mg/dL (0.2-1.3); CALCIUM 7.6 mg/dL (8.5-10.1); CARBON DIOXIDE 21.5 mmol/L (21.0-32.0); CHLORIDE - SERUM 102 mmol/L (98-107); CREATINE KINASE 55 UL (21-215); CREATININE - SERUM 1.4 mg/dL (0.6-1.3); PROTEIN - SERUM 5.8 g/dL (6.4-8.2); SODIUM 135 mmol/L (136-145); TROPONIN-I < 0.017 ng/mL (0.000-0.060); UREA NITROGEN 25 mg/dL (7-18); eGFR NON AFRICAN AMERICAN 41 mL/min (90-120)
[2018-05-02 05:47] LABS: ALBUMIN 2.4 g/dL (3.4-5.0); ALT (SGPT) 44 U/L (10-68); CALC OSMOLALITY 274 mosm/kg (275-300); GLUCOSE 112 mg/dL (74-106); POTASSIUM - SERUM 4.1 mmol/L (3.5-5.1)
[2018-05-02 06:00] VITALS: BP 92/48
[2018-05-02 08:19] VITALS: BP 94/51
[2018-05-02 09:03] LABS: % SATURATION 15 % (15-55); IRON 49 ug/dl (35-150); TOTAL IRON BIND CAPACITY 325 ug/dl (260-445); UNSAT IRON BIND CAPACITY 276 ug/dl (150-375)
[2018-05-02 11:39] VITALS: BP 105/54
[2018-05-02] MEDS ORDERED: XARELTO10 MG PO (11:41)
[2018-05-02] MEDS ORDERED: DEXILANT60 MG PO (11:45)
[2018-05-02] MEDS ORDERED: LOTENSIN20 MG PO (11:47)
[2018-05-02] MEDS ORDERED: CATAPRES0.1 MG PO (11:48)
[2018-05-02] MEDS ORDERED: HYDROCHLOROTHIA25 MG PO (11:49)
[2018-05-02] MEDS ORDERED: SONATA5 MG PO (11:51)
[2018-05-02] MEDS ORDERED: BUTRANS1 EAC3 TRANSDERM (11:53)
[2018-05-02] MEDS ORDERED: ADIPEX-P37.5 M1 PO (11:54)
[2018-05-02] MEDS ORDERED: COLACE50 MG/5 ML (11:55)
[2018-05-02] MEDS ORDERED: ZYRTEC10 MG PO (11:56)
[2018-05-02] MEDS ORDERED: NITROGLYCERIN6.5 MG TP (11:58)
[2018-05-02] MEDS ORDERED: TOUJEO SOL300 UNIT/1 SC (12:03)
[2018-05-02 15:54] VITALS: BP 114/55
[2018-05-02 21:00] VITALS: BP 126/61
[2018-05-02 22:51] LABS: HEMATOCRIT 26.1 % (36.0-48.0); HEMOGLOBIN 7.8 g/dL (12-16)
[2018-05-03] VITALS: BP 95/48
[2018-05-03 03:45] VITALS: BP 103/55
[2018-05-03 05:10] LABS: ALBUMIN 2.2 g/dL (3.4-5.0); ALKALINE PHOSPHATASE 123 U/L (46-116); CALCIUM 7.9 mg/dL (8.5-10.1); CHLORIDE - SERUM 104 mmol/L (98-107); POTASSIUM - SERUM 4.1 mmol/L (3.5-5.1); PROTEIN - SERUM 5.9 g/dL (6.4-8.2); SODIUM 138 mmol/L (136-145)
[2018-05-03 05:11] LABS: ALT (SGPT) 24 U/L (10-68); CALC OSMOLALITY 281 mosm/kg (275-300); CREATININE - SERUM 0.7 mg/dL (0.6-1.3); GLUCOSE 187 mg/dL (74-106); UREA NITROGEN 16 mg/dL (7-18); eGFR NON AFRICAN AMERICAN > 90 mL/min (90-120)
[2018-05-03 08:34] VITALS: BP 116/62
[2018-05-03 09:10] LABS: BASOPHILS 0.1 % (0-2); EOSINOPHILS 0.6 % (0-7); HEMATOCRIT 23.9 % (36.0-48.0); IMMATURE GRANULOCYTES 0.2 % (0-5); LYMPHOCYTES 14.8 % (15-50); MCH 23.8 pg (26.0-34.0); MCHC 29.3 g/dL (31.0-37.0); MCV 81.3 fL (80.0-100.0); MEAN PLATELET VOLUME 11.3 fL (7.4-10.4); MONOCYTES 10.6 % (2-11); NEUTROPHILS 73.7 % (40-80); PLATELET COUNT 181 10x3/uL (130-400); RBC 2.94 10x6/uL (4.00-5.40); RDW 17.4 % (11.5-14.5); WBC 11.7 10x3/uL (4.8-10.8)
[2018-05-03 12:03] VITALS: BP 122/69
[2018-05-03 16:21] VITALS: BP 125/64
[2018-05-03 20:00] VITALS: BP 145/73
[2018-05-04 03:58] LABS: BASOPHILS 0.1 % (0-2); HEMOGLOBIN 9.2 g/dL (12-16); IMMATURE GRANULOCYTES 0.3 % (0-5); LYMPHOCYTES 17.2 % (15-50); MCH 24.9 pg (26.0-34.0); MCHC 30.7 g/dL (31.0-37.0); MCV 81.3 fL (80.0-100.0); MEAN PLATELET VOLUME 11.1 fL (7.4-10.4); NEUTROPHILS 75.4 % (40-80); PLATELET COUNT 177 10x3/uL (130-400); RBC 3.69 10x6/uL (4.00-5.40); RDW 16.5 % (11.5-14.5); WBC 10.1 10x3/uL (4.8-10.8)
[2018-05-04 04:06] LABS: CALCIUM 9.3 mg/dL (8.5-10.1); CARBON DIOXIDE 25.8 mmol/L (21.0-32.0); CHLORIDE - SERUM 105 mmol/L (98-107); POTASSIUM - SERUM 4.2 mmol/L (3.5-5.1); SODIUM 136 mmol/L (136-145)
[2018-05-04 04:08] LABS: CALC OSMOLALITY 271 mosm/kg (275-300); GLUCOSE 122 mg/dL (74-106); UREA NITROGEN 11 mg/dL (7-18)
[2018-05-04 04:09] LABS: CREATININE - SERUM 0.5 mg/dL (0.6-1.3); eGFR NON AFRICAN AMERICAN > 90 mL/min (90-120)
[2018-05-04 08:59] VITALS: Ht 172.7 cm; Wt 82.1 kg
[2018-05-04 10:20] VITALS: BP 165/97
[2018-05-04 12:34] VITALS: BP 149/80
[2018-05-04 16:41] VITALS: BP 156/86
[2018-05-04 20:00] VITALS: BP 150/74
[2018-05-05] VITALS: BP 161/71
[2018-05-05 04:00] VITALS: BP 152/85
[2018-05-05 06:11] LABS: BASOPHILS 0.1 % (0-2); EOSINOPHILS 2.9 % (0-7); IMMATURE GRANULOCYTES 0.4 % (0-5); LYMPHOCYTES 24.4 % (15-50); MCH 24.9 pg (26.0-34.0); MCHC 30.3 g/dL (31.0-37.0); MCV 82.1 fL (80.0-100.0); MEAN PLATELET VOLUME 11.1 fL (7.4-10.4); MONOCYTES 7.8 % (2-11); NEUTROPHILS 64.4 % (40-80); RBC 4.02 10x6/uL (4.00-5.40); RDW 16.9 % (11.5-14.5); WBC 9.7 10x3/uL (4.8-10.8)
[2018-05-05 06:12] LABS: PLATELET COUNT 222 10x3/uL (130-400)
[2018-05-05 06:29] LABS: CALC OSMOLALITY 275 mosm/kg (275-300); CALCIUM 9.9 mg/dL (8.5-10.1); CARBON DIOXIDE 26.6 mmol/L (21.0-32.0); CHLORIDE - SERUM 102 mmol/L (98-107); CREATININE - SERUM 0.7 mg/dL (0.6-1.3); GLUCOSE 128 mg/dL (74-106); POTASSIUM - SERUM 4.1 mmol/L (3.5-5.1); SODIUM 137 mmol/L (136-145); UREA NITROGEN 12 mg/dL (7-18); eGFR NON AFRICAN AMERICAN > 90 mL/min (90-120)
[2018-05-05 08:49] VITALS: BP 153/78
[2018-05-05 12:23] VITALS: BP 123/72
[2018-05-05] MEDS ORDERED: PLAVIX75 MG PO (15:02)
[2018-05-05] MEDS ORDERED: XARELTO20 MG PO (15:03)
[2018-05-05] MEDS ORDERED: DULCOLAX10 MG/SUPP RC (15:06)
[2018-05-05] MEDS ORDERED: LEVAQUIN750 MG PO (15:11)
== END 2018-05-05 18:16 | disposition home or self-care (01) | DRG 300 ==
LOC: D.ER 14:03 → D.EDHOLD 18:11 → D.MS 18:11
PROVIDERS: Family Medicine; Internal Medicine Nephrology
PROC: 05HY33Z Insertion of Infusion Device into Upper Vein, Percutaneous Approach (ICD-10-PCS; principal; 2018-05-01)
DX: I70.222 Atherosclerosis of native arteries of extremities with rest pain, left leg (principal); N39.0 Urinary tract infection, site not specified; N17.9 Acute kidney failure, unspecified; F17.213 Nicotine dependence, cigarettes, with withdrawal; D64.89 Other specified anemias; I95.9 Hypotension, unspecified; I10 Essential (primary) hypertension; I25.10 Atherosclerotic heart disease of native coronary artery without angina pectoris; I70.201 Unspecified atherosclerosis of native arteries of extremities, right leg

== ENCOUNTER 2018-05-08 11:32 | Outpatient (CLI) | payer OTHER ==
[~2018-05-08] VITALS: Ht 172.7 cm; Wt 82.3 kg
--- NOTE | ~2018-05-08 | HEMODYNAMI ---
PATIENT:HENRY DELVALLE MEDICAL RECORD: [id number] : 63 LOCATION:[facility] ADMISSION DATE: 05/08/18 Generatedon:05/08/201815:13 Patient name: HENRY DELVALLE Patient #: [id number] : 1965 Date of study: 05/08/2018 Page: Of Hemodynamic Procedure Report Patient Data Patient Demographics Procedure consent was obtained First Name: HENRY Gender: Female Last Name: ADELIA : 1965 [facility] Initial: FABRICE Age: 53 year(s) Patient #: [id number] Race: SSN: [id number] Additional ID: [id number] Contact details Address: [place] [address] State: [facility] Zip code: [address] Past Medical History Allergies Allergen Reaction Date Comments Reported Other allergy 07/27/2016 Procardia, Macrodanatin Admission Admission Data Admission Date: 05/08/2018 Admission Time: 11:32 Procedure Procedure Types Cath Procedure Diagnostic Procedure Sedation Charges Moderate Sedation up to 30 minutes Peripheral Cath Diagnostic Procedure Supervisor Production Department Peripheral Procedures Idkej-Skrpljb-Ruk-Off Peripheral vascular Intervention Stent Stent-Fem/Popw/plasty Procedure Description Procedure Date Procedure Date: 05/08/2018 Procedure Start Time: 13:59 Procedure End Time: 15:11 Procedure Staff Name Function Chaparro Bhakta MD Performing Physician Clarissa Bentley RT Monitor Flakita Orourke RT Scrub Jeffery Moffett RN Nurse Procedure Data Cath Procedure Fluoroscopy Diagnostic fluoroscopy Total fluoroscopy Time: time: 22.7 min 22.7 min Diagnostic fluoroscopy Total fluoroscopy dose: 546 dose: 546 mGy mGy Contrast Material Contrast Material Type Amount (ml) Isovue 300 159 Entry Location Entry Primary Successful Side Size Upsize Upsize Entry Closure Succes sful Closure Location (Fr) 1 (Fr) 2 (Fr) Remarks Device Remarks Femoral Left 5 Fr 6 Fr 6 Fr Exoseal artery Long Short Estimated blood loss: 5 ml Diagnostic catheters Device Type Used For End Catheter Placement DIAGNOSTIC UF 5Fr Multi-vessel catheter ([id number]) Angiography DIAGNOSTIC IM 5Fr Multi-vessel catheter ([id number]) Angiography Procedure Complications No complications Procedure Medications Medication Administration Route Dosage 0.9% NaCl I.V. 100 ml/hr Oxygen etCO2 Nasal cannula 2 l/min Heparin Flush Bag added to field 2 bags (1000units/500ml NS) Lidocaine 2% added to field 20 Versed I.V. 2 mg Fentanyl I.V. 100 mcg Versed I.V. 2 mg Fentanyl I.V. 100 mcg Versed I.V. 2 mg Heparin Bolus I.V. 5000 units Versed I.V. 1 mg Fentanyl I.V. 50 mcg Versed I.V. 1 mg Fentanyl I.V. 50 mcg Versed I.V. 1 mg Fentanyl I.V. 50 mcg Versed I.V. 1 mg Fentanyl I.V. 50 mcg Plavix P.O. 75 mg Hemodynamics Rest Heart Rate: 84 (bpm) Snapshots Pre Cath Intra NCS Post Cath Vital Signs Time Heart Resp SPO2 etCO2 NIBP (mmHg) Rhythm Pain Sedation Rate (ipm) (%) (mmHg) Status Level (bpm) 13:48:53 86 17 96 0 163/93(139) NSR 0 (11) 10(A) , No pain 13:53:09 87 19 94 30.3 148/96(127) NSR 0 (11) 10(A) , No pain 13:57:21 89 15 94 27.2 153/96(117) NSR 0 (11) 10(A) , No pain 14:01:37 84 13 95 27.2 131/85(111) NSR 0 (11) 10(A) , No pain 14:05:43 86 12 95 37.1 146/92(125) NSR 0 (11) 10(A) , No pain 14:09:59 86 19 95 29.5 140/81(121) NSR 0 (11) 10(A) , No pain 14:14:11 86 12 95 34.8 142/84(101) NSR 0 (11) 10(A) , No pain 14:18:23 90 13 95 31.8 147/88(109) NSR 0 (11) 10(A) , No pain 14:22:37 91 14 97 33.3 155/87(119) NSR 0 (11) 10(A) , No pain 14:26:55 90 13 96 33.3 153/86(114) NSR 0 (11) 10(A) , No pain 14:31:09 89 12 96 37.1 142/90(111) NSR 0 (11) 10(A) , No pain 14:35:19 91 15 95 35.6 156/92(134) NSR 0 (11) 10(A) , No pain 14:39:35 89 13 96 36.3 151/85(119) NSR 0 (11) 10(A) , No pain 14:43:51 89 17 93 31.8 147/88(121) NSR 0 (11) 10(A) , No pain 14:48:03 72 10 95 24.2 140/85(112) NSR 0 (11) 10(A) , No pain 14:52:15 87 13 95 36.3 138/82(111) NSR 0 (11) 10(A) , No pain 14:56:23 70 14 96 32.5 146/87(128) NSR 0 (11) 10(A) , No pain 15:00:36 87 11 93 31 164/88(128) NSR 0 (11) 10(A) , No pain 15:04:54 85 24 96 33.3 153/100(142) NSR 0 (11) 10(A) , No pain 15:09:08 97 11 98 26.5 169/101(141) NSR 0 (11) 10(A) , No pain Medications Time Medication Route Dose Verified Delivered Reason Notes Effectiveness by by 13:49:28 0.9% NaCl I.V. 100 Jeffery Jeffery Per physician ml/hr Zuhair Moffett RN RN 13:49:36 Oxygen etCO2 2 Jeffery Jeffery Per physician Nasal l/min Zuhair Moffett cannula RN RN 13:49:51 Heparin Flush added 2 Jeffery Jeffery used for Bag to bags Zuhair Moffett procedure (1000units/500ml field ISAACS RN NS) 13:50:02 Lidocaine 2% added 20ml Jeffery Jeffery for local to vial Zuhair Moffett anesthetic field SHITAL ISAACS 13:54:46 Versed I.V. 2 mg Jeffery Jeffery for sedation Lorigan Lorigan RN RN 13:54:54 Fentanyl I.V. 100 Jeffery Jeffery for sedation mcg Zuhair Moffett RN RN 13:58:45 Versed I.V. 2 mg Jeffery Jeffery for sedation Zuhair Moffett RN RN 13:58:51 Fentanyl I.V. 100 Jeffery Jeffery for sedation mcg Zuhair Moffett RN RN 14:01:15 Versed I.V. 2 mg Jeffery Jeffery for sedation Zuhair Moffett RN RN 14:12:20 Heparin Bolus I.V. 5000 Jeffery Jeffery for units Zuhair Moffett anticoagulation RN RN 14:12:29 Versed I.V. 1 mg Jeffery Jeffery for sedation Zuhair Moffett RN RN 14:12:36 Fentanyl I.V. 50 Jeffery Jeffery for sedation mcg Zuhair Moffett RN RN 14:17:14 Versed I.V. 1 mg Jeffery Jeffery for sedation Zuhair Moffett RN RN 14:17:19 Fentanyl I.V. 50 Jeffery Jeffery for sedation mcg Zuhair Moffett RN RN 14:46:53 Versed I.V. 1 mg Jeffery Jeffery for sedation Zuhair Moffett RN RN 14:46:59 Fentanyl I.V. 50 Jeffery Jeffery for sedation mcg Zuhair Moffett RN RN 14:56:17 Versed I.V. 1 mg Jeffery Jeffery for sedation Zuhair Moffett RN RN 14:56:22 Fentanyl I.V. 50 Jeffery Jeffery for sedation mcg Zuhair Moffett RN RN 15:10:08 Plavix P.O. 75 mg Jeffery Jeffery for Zuhair Moffett antiplatelet RN RN therapy Procedure Log Time Note 13:35:46 Informed consent obtained and on chart 13:35:48 Diagnostic Cath Status : Elective 13:36:14 Jeffery Moffett RN sent for patient. Start room use. 13:36:15 Time tracking: Regular hours (M-F 7:00 - 5:00) 13:36:19 Plan of Care:Hemodynamics will remain stable., Cardiac rhythm will remain stable., Comfort level will be maintained., Respiratory function will remain adequate., Patient/ family verbilizes understanding of procedure., Procedure tolerated without complication., Recovers from procedure without complications.. 13:37:33 Patient received from Pre/Post Procedure Room to CCL 2 Alert and oriented. Tansferred to table in Supine position. 13:37:35 Warm blankets applied, and georgiana hugger turned on for patient comfort. 13:37:35 Correct patient and procedure confirmed by team. 13:37:39 ECG and BP/O2 sat monitors applied to patient. 13:47:44 Vital chart was started 13:47:45 Baseline sample Acquired. 13:47:48 Rhythm: sinus rhythm 13:47:50 Full Disclosure recording started 13:47:55 H&P Date Dictated: 05/08/2018 Within 30 days and on chart., H&P Addendum completed by physician on day of procedure. (MUST COMPLETE FOR ALL OUTPATIENTS). 13:47:56 Pre-procedure instructions explained to patient. 13:47:57 Pre-op teaching completed and patient verbalized understanding. 13:47:59 Family in waiting room. 13:48:00 Patient NPO since Midnight. 13:48:07 Is the patient allergic to Iodine/contrast media? No. 13:48:08 Was the patient premedicated? No 13:48:09 Is patient on blood thinner?Yes 13:48:13 ACC The patient was administered the following blood thiners within the last 24 hours: ACCPlavix, Xarelto 13:49:28 0.9% NaCl 100 ml/hr I.V. was administered by Jeffery Moffett RN; Per physician; 13:49:36 Oxygen 2 l/min etCO2 Nasal cannula was administered by Jeffery Moffett RN; Per physician; 13:49:50 Patient diabetic? Yes. 13:49:51 Heparin Flush Bag (1000units/500ml NS) 2 bags added to field was administered by Jeffery Moffett RN; used for procedure; 13:49:51 If diabetic: On Metformin? No 13:49:53 Previous problem with sedation/anesthesia? No ? 13:49:55 Snore? Yes 13:49:56 Sleep apnea? Yes 13:49:57 Deviated septum? No 13:49:57 Opens mouth fully? Yes 13:49:58 Sticks out tongue? Yes 13:50:00 Airway obstruction? No ? 13:50:02 Lidocaine 2% 20ml vial added to field was administered by Jeffery Moffett RN; for local anesthetic; 13:50:03 Dentures? No ? 13:50:06 Pre procedure: right dorsailis pedis pulse 1+ Palpable, but thready & weak; easily obliterated 13:50:08 Pre procedure: left dorsailis pedis pulse 1+ Palpable, but thready & weak; easily obliterated 13:50:10 Patient pain scale 0/10 ?. 13:50:15 IV patent on arrival in left forearm with 0.9% NaCl at KVO. 13:50:17 Lab results completed and on chart. 13:50:25 Bilateral groins area was prepped with chlora-prep and draped in sterile fashion 13:50:25 Alarms reviewed by R. N. 13:50:26 Sharps counted by scrub and verified by R.N. 13:50:27 Physician arrived 13:50:27 --------ALL STOP TIME OUT------ 13:50:28 Final Timeout: patient, procedure, and site verified with staff and physician. All members of the team are in agreement. 13:50:29 Bilateral groins site verified by team. 13:50:32 Physical assessment completed. ASA score P 2 - A patient with mild systemic disease as per Chaparro Bhakta MD. 13:50:36 Sedation plan: IV Moderate Sedation Medication:Versed, Fentanyl 13:54:46 Versed 2 mg I.V. was administered by Jeffery Moffett RN; for sedation; 13:54:54 Fentanyl 100 mcg I.V. was administered by Jeffery Moffett RN; for sedation; 13:55:16 Use device set CATH PACK 13:55:17 ACIST Syringe (48622) opened to sterile field. 13:55:18 ACIST Hand Control (78312) opened to sterile field. 13:55:18 ACIST Manifold (43150) opened to sterile field. 13:55:19 Medline Cath Pack ([id number]) opened to sterile field. 13:55:20 Bag Decanter (2002) opened to sterile field. 13:55:21 DIAGNOSTIC WIRE .035 260cm J wire (606931) opened to sterile field. 13:55:29 SHEATH 5FR Prosper (IGX604) opened to sterile field. 13:58:45 Versed 2 mg I.V. was administered by Jeffery Moffett RN; for sedation; 13:58:51 Fentanyl 100 mcg I.V. was administered by Jeffery Lorigan RN; for sedation; 13:59:14 Procedure started. 13:59:37 Local anesthetic to left femerol artery with Lidocaine 2% by Chaparro Bhakta MD.INITIAL ACCESS ONLY 13:59:48 A 5 Fr sheath was inserted into the Left Femoral artery 14:01:00 A DIAGNOSTIC UF 5Fr catheter ([id number]) was advanced over the wire and used for Multi-vessel Angiography. 14:01:15 Versed 2 mg I.V. was administered by Jeffery Moffett RN; for sedation; 14:02:55 Abdominal angiogram w/ runoff was performed. 14:04:04 Catheter removed. 14:05:00 GLIDE WIRE Super Stiff Angled 260cm (GZ1112) opened to sterile field. 14:05:07 A DIAGNOSTIC IM 5Fr catheter ([id number]) was advanced over the wire and used for Multi-vessel Angiography. 14:05:43 glide wire advanced. 14:09:54 Catheter removed. 14:09:57 Proceeding to intervention. 14:10:14 EXOSEAL 6Fr (EX600) opened to sterile field. 14:10:14 SHEATH 6FR Prosper (CUV698) opened to sterile field. 14:10:15 SHEATH 6FR Destination (RSR01) opened to sterile field. 14:10:35 INFLATOR Merit BasixCompak (AK5516) opened to sterile field. 14:10:48 Sheath upsized to a 6 Fr Long. 14:12:20 Heparin Bolus 5000 units I.V. was administered by Jeffery Moffett RN; for anticoagulation; 14:12:29 Versed 1 mg I.V. was administered by Jeffery Moffett RN; for sedation; 14:12:36 Fentanyl 50 mcg I.V. was administered by Jeffery Moffett RN; for sedation; 14:13:35 TORQUE DEVICE PLASTIC .038 ( TD01) opened to sterile field. 14:15:31 GRAPHIX 300cm 0.014 guide wire ([id number]) opened to sterile field. 14:16:49 glide wire exchanged for PT Graphix 300 cm wire 14:17:14 Versed 1 mg I.V. was administered by Jeffery Moffett RN; for sedation; 14:17:19 Fentanyl 50 mcg I.V. was administered by Jeffery Moffett RN; for sedation; 14:18:17 Procedure type changed to Cath procedure, Diagnostic procedure, Sedation Charges, Moderate Sedation up to 30 minutes, Peripheral Cath Diagnostic Procedure, Supervisor Production Department Peripheral Procedures, Eygdu-Pszrquz-Hbk-Off, Peripheral vascular Intervention, Stent, Stent-Fem/Popw/plasty 14:20:19 REGALIA 300cm wire ([id number]) opened to sterile field. 14:21:08 PT Graphix wire exchanged for Regalia wire 14:29:18 Wire advanced across lesion. 14:31:15 CHOICE PT Extra Support J 300cm guide wire ([id number]) opened to sterile field. 14:31:55 Regalia wire exchanged for choice pt extra support 300 cm wire 14:33:36 The EMERGE OTW 3.5 x 20 balloon ([id number]) was advanced and then removed because in body, not inflated 14:36:19 Inflate balloon Inflation number: 1 A SABER 5.0 X 100 X 150 balloon ([id number]) was prepped and advanced across the Mid Superficial Femoral, Right, then inflated to 8 ANKITA for 0:30 (min:sec). 14:37:19 Inflation number: 2 The SABER 5.0 X 100 X 150 balloon ([id number]) was reinflated across the Mid Superficial Femoral, Right, to 8 ANKITA for 0:30 (min:sec). 14:38:22 Inflation number: 3 The SABER 5.0 X 100 X 150 balloon ([id number]) was reinflated across the Mid Superficial Femoral, Right, to 10 ANKITA for 0:30 (min:sec). 14:39:52 Inflation number: 4 The SABER 5.0 X 100 X 150 balloon ([id number]) was reinflated across the Mid Superficial Femoral, Right, to 10 ANKITA for 0:30 (min:sec). 14:43:16 Balloon removed over the wire. 14:46:21 SMART 6 X 150 X 120 stent ([id number]) was deployed across Mid Superficial Femoral, Right . 14:46:25 Stent catheter was removed intact over wire. 14:46:53 Versed 1 mg I.V. was administered by Jeffery Moffett RN; for sedation; 14:46:59 Fentanyl 50 mcg I.V. was administered by Jeffery Moffett RN; for sedation; 14:51:26 SMART 6 x 100 x 120 stent ([id number]) was deployed across Mid Superficial Femoral, Right . 14:54:29 Inflate balloon Inflation number: 5 A SABER 6.0 X 100 X 150 balloon ([id number]) was prepped and advanced across the Mid Superficial Femoral, Right, then inflated to 10 ANKITA for 0:30 (min:sec). 14:55:40 Inflation number: 6 The SABER 6.0 X 100 X 150 balloon ([id number]) was reinflated across the Mid Superficial Femoral, Right, to 10 ANKITA for 0:30 (min:sec). 14:56:17 Versed 1 mg I.V. was administered by Jeffery Moffett RN; for sedation; 14:56:22 Fentanyl 50 mcg I.V. was administered by Jeffery Moffett RN; for sedation; 14:57:03 Inflation number: 7 The SABER 6.0 X 100 X 150 balloon ([id number]) was reinflated across the Mid Superficial Femoral, Right, to 10 ANKITA for 0:30 (min:sec). 15:01:52 SMART 6 X 20 X 120 stent ([id number]) was deployed across Mid Superficial Femoral, Right . 15:03:22 Stent catheter was removed intact over wire. 15:05:48 Inflate balloon Inflation number: 8 A SABER 7 x 4 x 150 balloon ([id number]) was prepped and advanced across the Mid Superficial Femoral, Right, then inflated to 10 ANKITA for 0:30 (min:sec). 15:05:55 Balloon removed over the wire. 15:05:57 Wire removed. 15:06:11 Sheath upsized to a 6 Fr Short. 15:06:22 Sheath removed intact; hemostasis achieved with Exoseal to the Left Femoral artery. 15:06:24 Procedure ended.(Physican Out) 15:06:56 Fluoroscopy time 22.70 minutes. 15:07:00 Fluoroscopy dose: 546 mGy 15:07:00 Flurop Dose total: 546 15:08:55 Contrast amount:Isovue 300 159ml. 15:10:07 Sharps counted by scrub and verified by R.N. 15:10:08 Plavix 75 mg P.O. was administered by Jeffery Moffett RN; for antiplatelet therapy; 15:10:08 Insertion/operative site no bleeding no hematoma. 15:10:11 Post-op/insertion site Left Femoral artery dressed using a 4 x 4 and Tegaderm. 15:10:14 Post left femerol artery:stable 15:10:16 Post Procedure Pulses reassessed and unchanged 15:10:18 Post procedure rhythm: unchanged. 15:10:20 Estimated blood loss: 5 ml 15:10:22 Post procedure instruction explained to patient.Patient verbalizes understanding. 15:10:30 Patient needs reinforcement of post procedure teaching. 15:10:31 Procedure and supply charges have been captured, reviewed, submitted and are correct. 15:10:36 Procedure Complication : No complications 15:10:39 Vital chart was stopped 15:10:40 See physician's report for complete and final results. 15:10:52 Report given to Pre/Post Procedure Room. 15:10:59 Patient transfered to Pre/Post Procedure Room with Stretcher. 15:11:01 Procedure ended. 15:11:01 Full Disclosure recording stopped 15:11:10 ACC-PCI Only Patient was given prescriptions, or instructed by Chaparro Bhakta MD to start/continue the following medications upon discharge: Plavix 15:11:11 End room use (Document Last) Intervention Summary Intervention Notes Time ActionType Lesion and Equipment Action# Pressure Duration Attributes Used 14:33:36 Discard EMERGE OTW Balloon 3.5 x 20 balloon ([id number]) 14:36:19 Inflate Mid SABER 5.0 X 1 8 00:30 balloon Superficial 100 X 150 Femoral, balloon Right ([id number]) 14:37:19 Reinflate Mid SABER 5.0 X 2 8 00:30 balloon Superficial 100 X 150 Femoral, balloon Right ([id number]) 14:38:22 Reinflate Mid SABER 5.0 X 3 10 00:30 balloon Superficial 100 X 150 Femoral, balloon Right ([id number]) 14:39:52 Reinflate Mid SABER 5.0 X 4 10 00:30 balloon Superficial 100 X 150 Femoral, balloon Right ([id number]) 14:46:21 Deploy self Mid SMART 6 X 1 expanding Superficial 150 X 120 stent Femoral, stent Right ([id number]) 14:51:26 Deploy self Mid SMART 6 x 1 expanding Superficial 100 x 120 stent Femoral, stent Right ([id number]) 14:54:29 Inflate Mid SABER 6.0 X 5 10 00:30 balloon Superficial 100 X 150 Femoral, balloon Right ([id number]) 14:55:40 Reinflate Mid SABER 6.0 X 6 10 00:30 balloon Superficial 100 X 150 Femoral, balloon Right ([id number]) 14:57:03 Reinflate Mid SABER 6.0 X 7 10 00:30 balloon Superficial 100 X 150 Femoral, balloon Right ([id number]) 15:01:52 Deploy self Mid SMART 6 X 20 1 expanding Superficial X 120 stent stent Femoral, ([id number]) Right 15:05:48 Inflate Mid SABER 7 x 4 8 10 00:30 balloon Superficial x 150 Femoral, balloon Right ([id number]) Device Usage Item Name Manufacture Quantity Catalog Number Hospital Part Current M inimal Lot# / Charge Number Stock Stock Serial# Code ACIST Acist Medical 1 66552 516202 622211 878078 2 0 Syringe Systems Inc (90123) ACIST Hand Acist Medical 1 28193 869527 170568 356713 5 Control Systems Inc (13343) ACIST Acist Medical 1 93684 737948 359400 886034 5 Manifold Systems Inc (82015) Medline Cath Medline 1 [id number] 716444 40218 058938 5 Pack ([id number]) Bag Decanter Microtek 1 2001S 730605 98853 554285 5 () Medical Inc. DIAGNOSTIC [facility] [place] 1 203004 916686 823489 845180 3 0 WIRE .035 260cm J wire (920455) SHEATH 5FR Terumo 1 YIA930 820899 370297 186317 5 Prosper (ZMF201) DIAGNOSTIC Cardinal 1 [id number] 335657 692083 782924 1 0 UF 5Fr Health catheter (685880Q8) GLIDE WIRE Terumo 1 LL7984 094005 537266 212823 5 Super Stiff Angled 260cm (JL7361) DIAGNOSTIC Cardinal 1 [id number] 384570 475338 587172 5 IM 5Fr Health catheter (890926Q) EXOSEAL 6Fr Cardinal 1 EX600 687479 526894 802657 1 0 (EX600) Health SHEATH 6FR Terumo 1 JPW447 898974 702762 513957 4 0 Prosper (SFP583) SHEATH 6FR Terumo 1 RSR01 848596 58953 783998 5 Destination (RSR01) INFLATOR Merit Medical 1 LO7396 205383 910669 608520 1 5 Merit BasixCompak (KS3439) TORQUE [place] 1 TD01 546344 026940 656663 5 DEVICE Scientific PLASTIC .038 ( TD01) GRAPHIX [place] 1 [id number] 902274 364784 092072 5 300cm 0.014 Scientific guide wire (7587138F1) REGALIA Cardiovascular 1 [id number] 348923 880612 383822 1 [id number] 300cm wire systems ([id number]) CHOICE PT [place] 1 [id number] 330129 008501 520257 5 [id number] Extra Scientific Support J 300cm guide wire (4496894X5) EMERGE OTW [place] 1 [id number] 732940 355059 673871 5 [id number] 3.5 x 20 Scientific balloon ([id number]) SABER 5.0 X Cardinal 1 [id number] 878081 324224 5 100 X 150 Health balloon ([id number]) SMART 6 X Cardinal 1 [id number] 164936 719228 0 [id number] 150 X 120 Health stent ([id number]) SMART 6 x Cardinal 1 [id number] 785367 596179 0 [id number] 100 x 120 Health stent ([id number]) SABER 6.0 X Cardinal 1 [id number] 973766 272001 5 100 X 150 Health balloon ([id number]) SMART 6 X 20 Cardinal 1 [id number] 472187 680179 0 [id number] X 120 stent Health ([id number]) SABER 7 x 4 Cardinal 1 [id number] 484909 180743 518957 5 x 150 Health balloon ([id number]) Signature Audit Peever Stage Time Signature Unsigned Intra-Procedure 05/08/2018 Clarissa Bentley 3:13:45 PM RT(R) Signatures Monitor : Clarissa Bentley RT Signature : Date : Time : [facility] [address] [place] [address]
--- NOTE | ~2018-05-08 | OP ---
PATIENT NAME: HENRY DELVALLE MEDICAL RECORD: [id number] :63 LOCATION:D.CAT ADMISSION DATE: SURGEON: PER SCHROEDER MD DATE OF OPERATION: 05/08/2018 After left femoral artery was cannulated via Seldinger technique, the catheter was placed at the level of renal artery. Aortofemoral runoff was performed. Nonselective renal arteriogram shows no obvious evidence of renal artery stenosis. No evidence of aortic dissection. No evidence of aortic thrombus. Left iliac system is free of disease. 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 Fhnml-bt-avpea iliac system is free of disease. Right superficial femoral artery likewise has a long area of total occlusion before the bifurcation. There is actually 2-vessel runoff at the bifurcation. IMPRESSION: Intervention to the right SFA momentarily. We were able to place a long 6-Norwegian sheath around the horn to the area of the right femoral artery. Initially, PT Graphix wire was unable to cross the total occlusion. We were able to cross this with a Regalia wire. Next, we used a coronary catheter down distally to just above the bifurcation. Using this, the catheter was changed out to a PT extra support. Next, initial balloon used was 5-0 Saber, 100 mm, was taken up and down the long area of occlusion. Next, stents were placed in the following fashion; a 6-0 x 150 SMART stent, then a 6-0 x 100 SMART stent, and finally a 6-0 x 20 SMART stent. Postdeployment balloon used was a 6-0 x 100-mm Saber balloon up to 10 atmospheres throughout the area of total occlusion. Final angiography shows excellent resolution of long diffuse and totally stenosed superficial femoral artery to no significant residual and marked improvement of flow distally. Sheath was closed with ExoSeal device. The patient was previously on Plaix. Heparin was used in the lab. We will start Xarelto in a.m. TRANSINT:[id number] Voice Confirmation ID: [id number] DOCUMENT ID: [id number] PER SCHROEDER MD CC: [id number] DICTATION DATE: 05/08/18 1516 EARTH MOVING TECHNICIAN: 05/08/18 1821 DEP CLI 05/08/18 [facility] [address] [id number]
[~2018-05-08 11:32] MED LIST changes: +ADIPEX-P37.5 M1 PO; +BUTRANS1 EAC3 TRANSDERM; +CATAPRES0.1 MG PO; +COLACE50 MG/5 ML; +DEXILANT60 MG PO; +DULCOLAX10 MG/SUPP RC; +HYDROCHLOROTHIA25 MG PO; +LEVAQUIN750 MG PO; +LOTENSIN20 MG PO; +NITROGLYCERIN6.5 MG TP; +PLAVIX75 MG PO; +SONATA5 MG PO; +TOUJEO SOL300 UNIT/1 SC; +XARELTO10 MG PO; +XARELTO20 MG PO; +ZYRTEC10 MG PO
[2018-05-08 12:12] VITALS: BP 139/85; Ht 172.7 cm; Wt 82.3 kg
[2018-05-08 12:22] LABS: BASOPHILS 0.1 % (0-2); EOSINOPHILS 2.2 % (0-7); HEMATOCRIT 36.4 % (36.0-48.0); HEMOGLOBIN 11.3 g/dL (12-16); IMMATURE GRANULOCYTES 0.6 % (0-5); LYMPHOCYTES 15.3 % (15-50); MCH 25.3 pg (26.0-34.0); MCV 81.4 fL (80.0-100.0); MONOCYTES 3.7 % (2-11); NEUTROPHILS 78.1 % (40-80); RBC 4.47 10x6/uL (4.00-5.40); RDW 17.5 % (11.5-14.5); WBC 13.1 10x3/uL (4.8-10.8)
[2018-05-08 12:23] LABS: PLATELET COUNT 292 10x3/uL (130-400)
[2018-05-08 12:33] LABS: CALC OSMOLALITY 284 mosm/kg (275-300); CALCIUM 9.6 mg/dL (8.5-10.1); CARBON DIOXIDE 25.3 mmol/L (21.0-32.0); CHLORIDE - SERUM 103 mmol/L (98-107); CREATININE - SERUM 0.7 mg/dL (0.6-1.3); POTASSIUM - SERUM 4.4 mmol/L (3.5-5.1); SODIUM 140 mmol/L (136-145); UREA NITROGEN 11 mg/dL (7-18); eGFR NON AFRICAN AMERICAN > 90 mL/min (90-120)
[2018-05-08 12:34] LABS: GLUCOSE 216 mg/dL (74-106)
== END 2018-05-08 19:25 | disposition home or self-care (01) ==
LOC: D.CATH 11:32
PROVIDERS: Internal Medicine Interventional Cardiology
DX: I70.211 Atherosclerosis of native arteries of extremities with intermittent claudication, right leg (principal); I70.92 Chronic total occlusion of artery of the extremities; Z01.812 Encounter for preprocedural laboratory examination

== ENCOUNTER 2018-05-25 11:04 | Outpatient (CLI) | payer OTHER ==
[~2018-05-25] VITALS: Ht 172.7 cm; Wt 82.3 kg
--- NOTE | ~2018-05-25 | HEMODYNAMI ---
PATIENT:HENRY DELVALLE MEDICAL RECORD: [id number] : 63 LOCATION:[facility] ADMISSION DATE: 05/25/18 Generatedon:05/25/201814:00 Patient name: HENRY DELVALLE Patient #: [id number] : 1965 Date of study: 05/25/2018 Page: Of Hemodynamic Procedure Report Patient Data Patient Demographics Procedure consent was obtained First Name: HENRY Gender: Female Last Name: ADLEIA : 1965 [facility] Initial: FABRICE Age: 53 year(s) Patient #: [id number] Race: SSN: [id number] Additional ID: [id number] Contact details Address: [address] [place] [address] State: [place] City: [place] Zip code: [address] Past Medical History Allergies Allergen Reaction Date Comments Reported Other allergy 07/27/2016 Procardia, Macrodanatin Admission Admission Data Admission Date: 05/25/2018 Admission Time: 11:04 Admit Source: Other Procedure Procedure Types Cath Procedure Peripheral vascular Intervention Procedure Description Procedure Date Procedure Date: 05/25/2018 Procedure Start Time: 13:10 Procedure End Time: 13:55 Procedure Staff Name Function Chaparro Bhakta MD Performing Physician Clarissa Bentley RT Monitor Walt Diop RT Scrub Jeffery Moffett RN Nurse Procedure Data Cath Procedure Fluoroscopy Diagnostic fluoroscopy Total fluoroscopy Time: time: 16.5 min 16.5 min Diagnostic fluoroscopy Total fluoroscopy dose: 635 dose: 635 mGy mGy Contrast Material Contrast Material Type Amount (ml) Isovue 300 67 Entry Location Entry Primary Successful Side Size Upsize Upsize Entry Closure Succes sful Closure Location (Fr) 1 (Fr) 2 (Fr) Remarks Device Remarks Femoral Right 6 Fr 6 Fr 6 Fr Exoseal artery Short Long Short Estimated blood loss: 5 ml Diagnostic catheters Device Type Used For End Catheter Placement DIAGNOSTIC UF 5Fr Multi-vessel catheter ([id number]) Angiography DIAGNOSTIC MPA-2 5Fr Multi-vessel catheter ([id number]) Angiography Procedure Complications No complications Procedure Medications Medication Administration Route Dosage 0.9% NaCl I.V. 100 ml/hr Oxygen etCO2 Nasal cannula 2 l/min Heparin Flush Bag added to field 2 bags (1000units/500ml NS) Lidocaine 2% added to field 20 Versed I.V. 2 mg Versed I.V. 1 mg Fentanyl I.V. 50 mcg Heparin Bolus I.V. 5000 units Versed I.V. 1 mg Fentanyl I.V. 50 mcg Fentanyl I.V. 100 mcg Hemodynamics Rest Heart Rate: 70 (bpm) Snapshots Pre Cath Intra NCS Post Cath Vital Signs Time Heart Resp SPO2 etCO2 NIBP (mmHg) Rhythm Pain Sedation Rate (ipm) (%) (mmHg) Status Level (bpm) 12:49:40 68 13 100 29.7 163/94(124) NSR 0 (11) 10(A) , No pain 12:54:00 67 14 100 27.4 152/78(125) NSR 0 (11) 10(A) , No pain 12:58:16 66 11 100 31.1 139/83(105) NSR 0 (11) 10(A) , No pain 13:02:28 67 12 100 30.4 134/77(108) NSR 0 (11) 10(A) , No pain 13:06:38 66 11 100 31.9 136/77(105) NSR 0 (11) 10(A) , No pain 13:10:48 69 11 99 36.3 152/81(120) NSR 0 (11) 10(A) , No pain 13:15:04 68 19 98 31.9 131/81(102) NSR 0 (11) 10(A) , No pain 13:19:11 70 12 98 34.8 131/82(118) NSR 0 (11) 10(A) , No pain 13:23:21 68 11 97 34.1 136/79(94) NSR 0 (11) 10(A) , No pain 13:27:31 68 14 98 34.9 134/83(94) NSR 0 (11) 10(A) , No pain 13:31:41 69 14 98 37.1 131/78(97) NSR 0 (11) 10(A) , No pain 13:35:49 68 15 98 35.6 133/80(99) NSR 0 (11) 10(A) , No pain 13:39:59 67 14 98 37.1 122/76(111) NSR 0 (11) 10(A) , No pain 13:44:03 69 12 97 35.6 135/82(102) NSR 0 (11) 10(A) , No pain 13:48:12 66 12 97 35.6 125/81(98) NSR 0 (11) 10(A) , No pain 13:52:20 69 18 98 34.8 130/78(100) NSR 0 (11) 10(A) , No pain Medications Time Medication Route Dose Verified Delivered Reason Notes Effectiveness by by 12:48:54 0.9% NaCl I.V. 100 Jeffery Jeffery Per physician ml/hr Zuhair Moffett RN RN 12:49:06 Oxygen etCO2 2 Jeffery Jeffery Per physician Nasal l/min Zuhair Moffett cannula RN RN 12:49:17 Heparin Flush added 2 Jeffery Jeffery used for Bag to bags Zuhair Moffett procedure (1000units/500ml RN RN NS) 12:49:28 Lidocaine 2% added 20ml Jeffery Jeffery for local to vial Loralex Moffett anesthetic RN RN 13:10:51 Fentanyl I.V. 100 Jeffery Jeffery for sedation letty Moffett RN RN 13:10:57 Versed I.V. 2 mg Jeffery Jeffery for sedation Zuhair Moffett RN RN 13:14:48 Versed I.V. 1 mg Jeffery Jeffery for sedation Zuhair Moffett RN RN 13:19:14 Fentanyl I.V. 50 Jeffery Jeffery for sedation mcg Zuhair Moffett RN RN 13:24:46 Heparin Bolus I.V. 5000 Jeffery Jeffery for units Zuhair Moffett anticoagulation RN RN 13:38:24 Versed I.V. 1 mg Jeffery Jeffery for sedation Zuhair Moffett RN RN 13:47:26 Fentanyl I.V. 50 Jeffery Jeffery for sedation letty Moffett RN offal trimmer Log Time Note 12:25:10 Informed consent obtained and on chart 12:25:12 Admit Source: Other 12:25:24 Diagnostic Cath status Elective 12:25:26 Time tracking: Regular hours (M-F 7:00 - 5:00) 12:25:29 Plan of Care:Hemodynamics will remain stable., Cardiac rhythm will remain stable., Comfort level will be maintained., Respiratory function will remain adequate., Patient/ family verbilizes understanding of procedure., Procedure tolerated without complication., Recovers from procedure without complications.. 12:30:45 Walt Diop RT(R) sent for patient. Start room use. 12:42:19 Patient received from Pre/Post Procedure Room to CCL 2 Alert and oriented. Tansferred to table in Supine position. 12:42:21 Warm blankets applied, and georgiana hugger turned on for patient comfort. 12:42:21 Correct patient and procedure confirmed by team. 12:42:22 ECG and BP/O2 sat monitors applied to patient. 12:48:31 Vital chart was started 12:48:32 Baseline sample Acquired. 12:48:35 Rhythm: sinus rhythm 12:48:37 Full Disclosure recording started 12:48:41 H&P Date Dictated: 05/25/2018 Within 30 days and on chart., H&P Addendum completed by physician on day of procedure. (MUST COMPLETE FOR ALL OUTPATIENTS). 12:48:43 Pre-procedure instructions explained to patient. 12:48:43 Pre-op teaching completed and patient verbalized understanding. 12:48:46 Family in patients room. 12:48:48 Patient NPO since Midnight. 12:48:49 Is the patient allergic to Iodine/contrast media? No. 12:48:50 Was the patient premedicated? No 12:48:51 Is patient on blood thinner?Yes 12:48:53 ACC The patient was administered the following blood thiners within the last 24 hours: ACCPlavix 12:48:54 0.9% NaCl 100 ml/hr I.V. was administered by Jeffery Moffett RN; Per physician; 12:48:56 Patient diabetic? Yes. 12:48:57 If diabetic: On Metformin? No 12:48:59 Previous problem with sedation/anesthesia? No ? 12:49:00 Snore? Yes 12:49:01 Sleep apnea? Yes 12:49:02 Deviated septum? No 12:49:03 Opens mouth fully? Yes 12:49:04 Sticks out tongue? Yes 12:49:05 Airway obstruction? No ? 12:49:06 Oxygen 2 l/min etCO2 Nasal cannula was administered by Jeffery Moffett RN; Per physician; 12:49:08 Dentures? No ? 12:49:17 Heparin Flush Bag (1000units/500ml NS) 2 bags added to field was administered by Jeffery Moffett RN; used for procedure; 12:49:28 Lidocaine 2% 20ml vial added to field was administered by Jeffery Moffett RN; for local anesthetic; 12:50:09 Pre procedure: right dorsailis pedis pulse 1+ Palpable, but thready & weak; easily obliterated 12:50:13 Pre procedure: left dorsailis pedis pulse 1+ Palpable, but thready & weak; easily obliterated 12:50:15 Patient pain scale 0/10 ?. 12:50:21 IV patent on arrival in left forearm with 0.9% NaCl at [facility]. 12:50:27 Lab results completed and on chart. 12:50:31 Bilateral groins area was prepped with chlora-prep and draped in sterile fashion 12:50:33 Alarms reviewed by R. N. 12:50:33 Sharps counted by scrub and verified by R.N. 13:04:10 Physician paged 13:10:10 Physician arrived 13:10:10 --------ALL STOP TIME OUT------ 13:10:11 Final Timeout: patient, procedure, and site verified with staff and physician. All members of the team are in agreement. 13:10:13 Right groin site verified by team. 13:10:15 Physical assessment completed. ASA score P 2 - A patient with mild systemic disease as per Chaparro Bhakta MD. 13:10:19 Sedation plan: IV Moderate Sedation Medication:Versed, Fentanyl 13:10:25 Procedure started. 13:10:27 Local anesthetic to right femoral artery with Lidocaine 2% by Chaparro Bhakta MD.INITIAL ACCESS ONLY 13:10:36 A 6 Fr Short sheath was inserted into the Right Femoral artery 13:10:49 GLIDE WIRE .025 ANGLED (AM9784) opened to sterile field. 13:10:51 Fentanyl 100 mcg I.V. was administered by Jeffery Moffett RN; for sedation; 13:10:57 Versed 2 mg I.V. was administered by Jeffery Lorigan RN; for sedation; 13:11:17 A DIAGNOSTIC UF 5Fr catheter ([id number]) was advanced over the wire and used for Multi-vessel Angiography. 13:11:26 glide wire advanced. 13:12:18 TORQUE DEVICE PLASTIC .038 ( TD01) opened to sterile field. 13:14:48 Versed 1 mg I.V. was administered by Jeffery Moffett RN; for sedation; 13:15:57 Sheath upsized to a 6 Fr Long. 13:16:45 SHEATH 6FR Destination (RSR01) opened to sterile field. 13:19:14 Fentanyl 50 mcg I.V. was administered by Jeffery Moffett RN; for sedation; 13:23:04 A DIAGNOSTIC MPA-2 5Fr catheter ([id number]) was advanced over the wire and used for Multi-vessel Angiography. 13:23:32 5f uf catheter exchanged for mpa-2 13:24:46 Heparin Bolus 5000 units I.V. was administered by Jeffery Moffett RN; for anticoagulation; 13:25:47 Catheter removed. 13:27:03 GLIDE CATHETER 5FR ANGLED 100cm (CG508) opened to sterile field. 13:27:29 angled glide cath and super stiff glide wire advanced 13:29:53 glide cath removed 13:30:44 Procedure type changed to Cath procedure, Peripheral vascular Intervention 13:32:27 Inflate balloon Inflation number: 1 A POWERFLEX PRO 5.0 X 100 X 135 balloon ([id number]) was prepped and advanced across the Distal Superficial Femoral, Left, then inflated to 10 ANKITA for 0:30 (min:sec). 13:33:23 Inflation number: 2 The POWERFLEX PRO 5.0 X 100 X 135 balloon ([id number]) was reinflated across the Distal Superficial Femoral, Left, to 10 ANKITA for 0:30 (min:sec). 13:34:31 Inflation number: 3 The POWERFLEX PRO 5.0 X 100 X 135 balloon ([id number]) was reinflated across the Distal Superficial Femoral, Left, to 10 ANKITA for 0:30 (min:sec). 13:35:17 Inflation number: 4 The POWERFLEX PRO 5.0 X 100 X 135 balloon ([id number]) was reinflated across the Distal Superficial Femoral, Left, to 10 ANKITA for 0:30 (min:sec). 13:37:47 Balloon removed over the wire. 13:38:24 Versed 1 mg I.V. was administered by Jeffery Moffett RN; for sedation; 13:43:24 SMART 6 X 150 X 120 stent ([id number]) was deployed across Distal Superficial Femoral, Left . 13:43:33 Stent catheter was removed intact over wire. 13:45:07 SMART 6 X 120 X 120 stent ([id number]) was deployed across Mid Superficial Femoral, Left . 13:45:20 Stent catheter was removed intact over wire. 13:47:11 Inflation number: 5 The POWERFLEX PRO 5.0 X 100 X 135 balloon ([id number]) was reinflated across the Distal Superficial Femoral, Left, to 12 ANKITA for 0:30 (min:sec). 13:47:26 Fentanyl 50 mcg I.V. was administered by Jeffery Moffett RN; for sedation; 13:48:18 Inflation number: 1 The POWERFLEX PRO 5.0 X 100 X 135 balloon ([id number]) was reinflated across the Mid Superficial Femoral, Left, to 12 ANKITA for 0:30 (min:sec). 13:52:15 Balloon removed over the wire. 13:52:37 Sheath upsized to a 6 Fr Short. 13:53:25 Sheath removed intact; hemostasis achieved with Exoseal to the Right Femoral artery. 13:53:53 EXOSEAL 6Fr (EX600) opened to sterile field. 13:54:00 Procedure ended.(Physican Out) 13:54:30 Fluoroscopy time 16.50 minutes. 13:54:42 Flurop Dose total: 635 13:54:42 Fluoroscopy dose: 635 mGy 13:54:53 Contrast amount:Isovue 300 67ml. 13:54:55 Sharps counted by scrub and verified by R.N. 13:54:57 Insertion/operative site no bleeding no hematoma. 13:55:02 Post-op/insertion site Right Femoral artery dressed using a 4 x 4 and Tegaderm. 13:55:04 Post right femoral artery:stable 13:55:09 Post Procedure Pulses reassessed and unchanged 13:55:14 Post procedure rhythm: unchanged. 13:55:16 Estimated blood loss: 5 ml 13:55:18 Post procedure instruction explained to patient.Patient verbalizes understanding. 13:55:18 Patient needs reinforcement of post procedure teaching. 13:55:19 Procedure and supply charges have been captured, reviewed, submitted and are correct. 13:55:24 Procedure Complication : No complications 13:55:26 Vital chart was stopped 13:55:27 See physician's report for complete and final results. 13:55:41 Report given to Pre/Post Procedure Room. 13:55:44 Patient transfered to Pre/Post Procedure Room with Stretcher. 13:55:46 Procedure ended. 13:55:46 Full Disclosure recording stopped 13:55:54 ACC-PCI Only Patient was given prescriptions, or instructed by Chaparro Bhakta MD to start/continue the following medications upon discharge: Plavix 13:55:55 End room use (Document Last) 13:57:39 Use device set CATH PACK 13:57:42 ACIST Syringe (64813) opened to sterile field. 13:57:42 ACIST Hand Control (63996) opened to sterile field. 13:57:43 ACIST Manifold (27046) opened to sterile field. 13:57:43 Medline Cath Pack ([id number]) opened to sterile field. 13:57:44 Bag Decanter (2002S) opened to sterile field. 13:57:45 DIAGNOSTIC WIRE .035 260cm J wire (535393) opened to sterile field. 13:57:53 SHEATH 6FR [place] (MLL933) opened to sterile field. 13:58:33 GLIDE WIRE Super Stiff Angled 260cm (OF6906) opened to sterile field. Intervention Summary Intervention Notes Time ActionType Lesion and Equipment Action# Pressure Duration Attributes Used 13:32:27 Inflate Distal POWERFLEX 1 10 00:30 balloon Superficial PRO 5.0 X Femoral, 100 X 135 Left balloon ([id number]) 13:33:23 Reinflate Distal POWERFLEX 2 10 00:30 balloon Superficial PRO 5.0 X Femoral, 100 X 135 Left balloon ([id number]) 13:34:31 Reinflate Distal POWERFLEX 3 10 00:30 balloon Superficial PRO 5.0 X Femoral, 100 X 135 Left balloon ([id number]) 13:35:17 Reinflate Distal POWERFLEX 4 10 00:30 balloon Superficial PRO 5.0 X Femoral, 100 X 135 Left balloon ([id number]) 13:43:24 Deploy self Distal SMART 6 X 1 expanding Superficial 150 X 120 stent Femoral, stent Left ([id number]) 13:45:07 Deploy self Mid SMART 6 X 1 expanding Superficial 120 X 120 stent Femoral, stent Left ([id number]) 13:47:11 Reinflate Distal POWERFLEX 5 12 00:30 balloon Superficial PRO 5.0 X Femoral, 100 X 135 Left balloon ([id number]) 13:48:18 Reinflate Mid POWERFLEX 1 12 00:30 balloon Superficial PRO 5.0 X Femoral, 100 X 135 Left balloon ([id number]) Device Usage Item Name Manufacture Quantity Catalog Hospital Part Current Minimal L ot# / Number Charge Number Stock Stock Serial# Code GLIDE WIRE Terumo 1 [id number] 990587 010385 5 .025 ANGLED (FS6052) DIAGNOSTIC Cardinal 1 [id number] 206004 925169 923469 10 UF 5Fr Health catheter ([id number]) TORQUE [place] 1 TD01 558009 749402 463925 5 DEVICE Scientific PLASTIC .038 ( TD01) SHEATH 6FR Terumo 1 RSR01 371469 26010 780132 5 Destination (RSR01) DIAGNOSTIC Cardinal 1 [id number] 774187 980753 513093 5 MPA-2 5Fr Health catheter (325953N) GLIDE Terumo 1 CG508 979255 62865 383376 4 CATHETER 5FR ANGLED 100cm (CG508) POWERFLEX Cardinal 1 [id number] 995429 167708 168789 5 PRO 5.0 X Health 100 X 135 balloon ([id number]) SMART 6 X Cardinal 1 [id number] 971259 531983 0 0 5928975 150 X 120 Health stent ([id number]) SMART 6 X Cardinal 1 [id number] 248788 229742 0 1 [id number] 120 X 120 Health stent ([id number]) EXOSEAL 6Fr Cardinal 1 EX600 699014 313799 911822 10 (EX600) Health ACIST Acist 1 37763 895940 522632 636484 20 Syringe Medical (13586) Systems Inc ACIST Hand Acist 1 20202 781657 048168 373806 5 Control Medical (03747) Systems Inc ACIST Acist 1 52861 464742 833202 985780 5 Manifold Medical (21693) Systems Inc Medline Medline 1 [id number] 280283 70200 532534 5 Cath Pack ([id number]) Bag Microtek 1 2001S 996203 24059 974077 5 Decanter Medical Inc. () DIAGNOSTIC [place] 1 077285 941115 569008 202308 30 WIRE .035 260cm J wire (294489) SHEATH 6FR Terumo 1 KOF322 664052 132753 024053 40 [place] (KOW557) GLIDE WIRE Terumo 1 LU9259 429470 170140 399804 5 Super Stiff Angled 260cm (WX0567) Signature Audit [place] Time Signature Unsigned Intra-Procedure 05/25/2018 Clarissa Bentley 2:00:41 PM RT(R) Signatures Monitor : Clarissa Bentley RT Signature : Date : Time : [address] [address]
[2018-05-25] MEDS ORDERED: COLACE100 MG PO (11:30)
[2018-05-25 11:40] VITALS: BP 135/67; Ht 172.7 cm; Wt 82.3 kg
[2018-05-25 11:52] LABS: BASOPHILS 0.2 % (0-2); EOSINOPHILS 6.1 % (0-7); HEMATOCRIT 32.4 % (36.0-48.0); HEMOGLOBIN 9.9 g/dL (12-16); IMMATURE GRANULOCYTES 0.1 % (0-5); LYMPHOCYTES 23.8 % (15-50); MCH 25.6 pg (26.0-34.0); MCHC 30.6 g/dL (31.0-37.0); MCV 83.9 fL (80.0-100.0); MEAN PLATELET VOLUME 10.9 fL (7.4-10.4); MONOCYTES 5.1 % (2-11); NEUTROPHILS 64.7 % (40-80); PLATELET COUNT 278 10x3/uL (130-400); RBC 3.86 10x6/uL (4.00-5.40); RDW 18.1 % (11.5-14.5); WBC 8.9 10x3/uL (4.8-10.8)
[2018-05-25 11:59] LABS: CALC OSMOLALITY 277 mosm/kg (275-300); CALCIUM 9.5 mg/dL (8.5-10.1); CARBON DIOXIDE 25.8 mmol/L (21.0-32.0); CHLORIDE - SERUM 102 mmol/L (98-107); CREATININE - SERUM 0.8 mg/dL (0.6-1.3); GLUCOSE 226 mg/dL (74-106); POTASSIUM - SERUM 4.5 mmol/L (3.5-5.1); SODIUM 136 mmol/L (136-145); UREA NITROGEN 10 mg/dL (7-18); eGFR NON AFRICAN AMERICAN 79 mL/min (90-120)
--- NOTE | 2018-05-25 14:25 | NUR ---
2L NC, NO RESP DISTRESS. RIGHT GROIN 6F EXOSEAL CDI, NO BLEEDING OR HEMATOMA NOTED. NO C/O PAIN OR NAUSEA. VSS. FAMILY AT BEDSIDE, CALL LIGHT WITHIN REACH.
--- NOTE | 2018-05-25 14:55 | NUR ---
RIGHT GROIN 6F EXOSEAL CDI, NO BLEEDING OR HEMATOMA NOTED. NO C/O PAIN OR NAUSEA. 2L NC WITH NO RESP DISTRESS. VSS. WILL CONTINUE TO MONITOR.
--- NOTE | 2018-05-25 15:10 | NUR ---
RESTING QUIETLY WITH EYES CLOSED. RIGHT GROIN 6F EXOSEAL CDI, NO BLEEDING OR HEMATOMA NOTED. DENIES ANY NEEDS AT THIS TIME. VSS. CALL LIGHT WITHIN REACH.
--- NOTE | 2018-05-25 15:40 | NUR ---
CONTINUES TO REST COMFORTABLY WITH EYES CLOSED. RIGHT GROIN 6F EXOSEAL CDI, NO BLEEDING OR HEMATOMA NOTED. NO NEEDS VOICED. VSS. CALL LIGHT WITHIN REACH.
--- NOTE | 2018-05-25 16:10 | NUR ---
RIGHT GROIN 6F EXOSEAL CDI, NO BLEEDING OR HEMATOMA NOTED. 2L NC WITH NO RESP DISTRESS. NO C/O OR NEEDS VOICED. VSS. WILL CONTINUE TO MONITOR CLOSELY.
--- NOTE | 2018-05-25 16:35 | NUR ---
REPORT AND CARE FROM PANFILO MARI RN. PT IS SLEEPING, AWAKENS EASILY TO VERBAL STIMULI. DENIES ANY C/O. DRESSING TO RIGHT GROIN IS CDI, AREA IS SOFT AND NONTENDER. PEDAL PULSES PALPABLE, BILATERALLY. HOB IS FLAT, VSS. AT BEDSIDE, CALL LIGHT IN REACH.
--- NOTE | 2018-05-25 17:11 | NUR ---
HOB ELEVATED 30 DEGREES, DRESSING TO RIGHT GROIN IS CDI, AREA IS SOFT AND NONTENDER. PEDAL PULSES PALPABLE. VSS, PT DENIES ANY C/O. SANDWICH AND PO FLUIDS SERVED.
--- NOTE | 2018-05-25 17:34 | NUR ---
DRESSING REMAINS CDI, PEDAL PULSES PALPABLE. PT IS ALERT AND DENIES ANY C/O. HAS DANILO SANDWICH WITH NO C/O NAUSEA. IV DC'D WITH CATH INTACT.
--- NOTE | 2018-05-25 17:49 | NUR ---
ESCORTED PT TO THE BATHROOM VIA WC AND PT HAS VOIDED QS. DC INSTRUCTIONS HAVE BEEN REVIEWED WITH PT AND PT HAS DRESSED FOR DC TO HOME. DENIES ANY C/O, DRESSING REMAINS CDI.
--- NOTE | 2018-05-25 17:51 | NUR ---
PT ESCORTED TO PRIVATE AUTO VIA WC BY NURSE WITH DRIVING HER HOME.PT ALERT AND DENIES ANY C/O UPON DC.
--- NOTE | 2018-05-30 11:50 | OP ---
PATIENT NAME: HENRY DELVALLE MEDICAL RECORD: [id number] :63 LOCATION:[facility] ADMISSION DATE: SURGEON: PER SCHROEDER MD DATE OF OPERATION: 05/25/2018 PROCEDURE: AIRCRAFT ENGINEER stent to the left SFA. DESCRIPTION OF PROCEDURE: After the right femoral artery was cannulated via modified Seldinger technique, we were able to go around the horn using a stiff Dows catheter, stiff Glidewire. The short sheath was exchanged for long Arrow sheath. The stiff Dows was able to cross the totally occluded left SFA down this portion of vessel. Pre-deployment balloon used was a 5.0 Powerflex up and down the left SFA in multiple areas of 80% in addition to the 100% stenosis. Next, distally, a 6.0 x 150 SMART stent was placed approximately a 6.0 x 150 second SMART stent was placed. Post-deployment inflations were used using the previous Powerflex up to 14 atmospheres. Final angiography showed excellent resolution of 100% stenosis and multiple 80% stenosis, no significant residual. RODRIGUEZ flow was markedly improved throughout the distal vasculature. Sheath closed with ExoSeal device. The patient previously on Plavix. TRANSINT:[id number] Voice Confirmation ID: [id number] DOCUMENT ID: [id number] PER SCHROEDER MD at 1150 CC: [id number] DICTATION DATE: 05/25/18 1359 INFRASTRUCTURE DIRECTOR: 05/25/18 1452 DEP CLI 05/25/18 [address] [place] [address]
== END 2018-05-25 17:50 | disposition home or self-care (01) ==
LOC: D.CATH 11:04
PROVIDERS: Internal Medicine Interventional Cardiology
DX: I70.202 Unspecified atherosclerosis of native arteries of extremities, left leg (principal); I70.92 Chronic total occlusion of artery of the extremities; Z01.812 Encounter for preprocedural laboratory examination

== ENCOUNTER → 2018-06-30 08:42 | Outpatient (CLI) | payer OTHER ==
[2018-05-25 11:40] VITALS: BMI 27.5
[~2018-06-30 08:42] MED LIST changes: +COLACE100 MG PO
--- NOTE | 2018-07-06 17:10 | ST ---
PATIENT:HENRY DELVALLE MEDICAL RECORD: [id number] SEX: F LOCATION:[facility] ORDER #: ADMISSION DATE: 06/30/18 AGE OF PATIENT: 53 REFERRING PHYSICIAN: INTERPRETING PHYSICIAN: ROBINSON EBY MD DATE OF SERVICE: 06/30/2018 PROCEDURE: Nuclear stress test. INDICATIONS: Angina, coronary artery disease, hypertension, hyperlipidemia. PROCEDURE IN DETAIL: She was exercised on standard Lexiscan protocol with 33 mCi of sestamibi injected at peak stress, 11 mCi were used previously for rest images. FINDINGS: Gated SPECT reveals a preserved ejection fraction at 54%. However, there is decreased thickening and brightening throughout the inferior segments. SPECT imaging: Cardiolite was used as myocardial perfusion agent. There is a definite fixed perfusion defect inferiorly and includes the basal, mid, apical, inferior segments. This is from a previous inferior myocardial infarction. No evidence of reversibility and the remaining segments are with homogeneous uptake at rest and stress. OVERALL IMPRESSION: This is an abnormal nuclear stress test only in that there is a fixed perfusion defect inferiorly compatible with the previous inferior myocardial infarction. No ongoing ischemic burden and preserved ejection fraction of 54%. Continue medical management of the coronary artery disease and cardiac risk factors. TRANSINT:[id number] Voice Confirmation ID: [id number] DOCUMENT ID: [id number] ROBINSON BEY MD at 1710 CC: [id number] DICTATION DATE: 06/30/18 1339 SOFTWARE TEST AUTOMATION ENGINEER: 07/01/18 0959 DEP CLI 06/30/18 [address] [place] [address]
== END | disposition home or self-care (01) ==
LOC: D.HCCARDIO 08:42
DX: I20.9 Angina pectoris, unspecified (principal)

== ENCOUNTER → 2018-07-12 09:52 | Outpatient (CLI) | payer OTHER ==
[2018-05-25 11:40] VITALS: BMI 27.5
[2018-07-12 10:49] LABS: BASOPHILS 0.2 % (0-2); EOSINOPHILS 5.7 % (0-7); HEMATOCRIT 28.9 % (36.0-48.0); HEMOGLOBIN 8.9 g/dL (12-16); IMMATURE GRANULOCYTES 0.1 % (0-5); LYMPHOCYTES 22.8 % (15-50); MCH 26.6 pg (26.0-34.0); MCHC 30.8 g/dL (31.0-37.0); MCV 86.3 fL (80.0-100.0); MEAN PLATELET VOLUME 10.8 fL (7.4-10.4); MONOCYTES 10.7 % (2-11); NEUTROPHILS 60.5 % (40-80); PLATELET COUNT 320 10x3/uL (130-400); RBC 3.35 10x6/uL (4.00-5.40); RDW 18.7 % (11.5-14.5); WBC 11.1 10x3/uL (4.8-10.8)
== END | disposition home or self-care (01) ==
LOC: D.LAB 09:52
PROVIDERS: Internal Medicine Gastroenterology
DX: K92.1 Melena (principal)

== ENCOUNTER 2018-12-15 05:41 | Day surgery (SDC) | payer OTHER ==
[2018-12-14 13:04] LABS: HEMATOCRIT 38.7 % (36.0-48.0); HEMOGLOBIN 13.5 g/dL (12-16); MCH 32.5 pg (26.0-34.0); MCHC 34.9 g/dL (31.0-37.0); MCV 93.3 fL (80.0-100.0); MEAN PLATELET VOLUME 10.7 fL (7.4-10.4); RBC 4.15 10x6/uL (4.00-5.40); WBC 13.5 10x3/uL (4.8-10.8)
[2018-12-14 13:23] LABS: ANION GAP 16.7 mmol/L (8-16); CALCIUM 9.8 mg/dL (8.5-10.1); CARBON DIOXIDE 22.4 mmol/L (21.0-32.0); CREATININE - SERUM 0.9 mg/dL (0.6-1.3); POTASSIUM - SERUM 4.1 mmol/L (3.5-5.1)
[2018-12-14 13:34] LABS: APTT 23.9 SECONDS (22.8-39.4); INR 0.95 (0.85-1.17); PROTIME 12.2 SECONDS (11.6-15.0)
[~2018-12-15] VITALS: Ht 172.7 cm; Wt 75.9 kg
[~2018-12-15 05:41] MED LIST changes: +DONEPEZIL HCL5 MG PO
[2018-12-15 06:40] VITALS: BP 167/97; Ht 172.7 cm; Wt 75.9 kg
--- NOTE | 2018-12-20 17:56 | OP ---
PATIENT NAME: HENRY DELVALLE MEDICAL RECORD: [id number] :63 LOCATION:[facility] ADMISSION DATE: SURGEON: MILIND MACKEY MD DATE OF OPERATION: 12/15/2018 PREOPERATIVE DIAGNOSIS: Left S1 radiculopathy secondary to disc herniation at L5-S1 on the left. PROCEDURES: Lumbar laminotomy, medial facetectomy and foraminotomy at L5-S1 on the left with METRx retractor. SURGEON: Milind Mackey MD DESCRIPTION AND TECHNIQUE: After induction of general endotracheal anesthesia, the patient was rolled prone on a Shiv frame. Lumbar spine was prepped and draped in usual sterile fashion. Fluoroscopic x-ray and spinal needle localized the L5-S1 interspace on the left side. A stab incision was created with a #11 blade and series of dilators was used to advance a METRx retractor at the L5-S1 interspace on the left side. The level was confirmed with fluoroscopic x-ray. A microscope and Midas Ran drill were used to perform laminotomy, medial facetectomy and foraminotomy at L5-S1 on the left. Hypertrophied ligamentum flavum was removed with Cloward rongeurs. Following this, the left S1 nerve root was identified and noted to decompress the free fragment disc herniation. This was removed in a piecemeal fashion with pituitary rongeurs. Additional material was removed from the disc space. Following this, the S1 nerve root was decompressed well. Meticulous hemostasis was maintained throughout the wound. The wound was irrigated with copious amounts of Ancef irrigant solution. The fascia was closed with 2-0 Vicryl suture, the subdermal layer was closed with 3-0 Vicryl suture. The skin was closed with Steri-Strips and benzoin. A sterile dressing was applied to the wound. The patient was awakened in good condition and taken to recovery. All counts were reported as correct. Estimated blood loss was minimal. TRANSINT:[id number] Voice Confirmation ID: [id number] DOCUMENT ID: [id number] MILIND MACKEY MD at 1756 CC: [id number] DICTATION DATE: 12/18/18 0951 SENIOR CONSULTING MANAGER: 12/18/18 1053 [facility] 12/15/[address] [address]
== END 2018-12-15 11:50 | disposition home or self-care (01) ==
LOC: D.OPS 05:41 → D.PAN 07:30 → D.OPS 07:30 → D.PAN 09:45 → D.OPS 11:50
PROVIDERS: Anesthesiology; ATTEND Neurological Surgery
DX: M51.17 Intervertebral disc disorders with radiculopathy, lumbosacral region (principal); Z01.812 Encounter for preprocedural laboratory examination

== ENCOUNTER 2019-03-13 05:30 | Day surgery (SDC) | payer OTHER ==
[2019-03-12 10:21] LABS: HEMATOCRIT 43.7 % (36.0-48.0); HEMOGLOBIN 14.4 g/dL (12-16); MCH 33.5 pg (26.0-34.0); MCV 101.6 fL (80.0-100.0); RBC 4.3 10x6/uL (4.00-5.40); RDW 12.6 % (11.5-14.5)
[2019-03-12 10:31] LABS: CALC OSMOLALITY 281 mosm/kg (275-300); CALCIUM 9.8 mg/dL (8.5-10.1); CARBON DIOXIDE 25.3 mmol/L (21.0-32.0); CHLORIDE - SERUM 104 mmol/L (98-107); CREATININE - SERUM 0.7 mg/dL (0.6-1.3); GLUCOSE 159 mg/dL (74-106); POTASSIUM - SERUM 4.6 mmol/L (3.5-5.1); SODIUM 139 mmol/L (136-145); UREA NITROGEN 14 mg/dL (7-18); eGFR NON AFRICAN AMERICAN > 90 mL/min (90-120)
[~2019-03-13] VITALS: Ht 172.7 cm; Wt 84.4 kg
[~2019-03-13 05:30] MED LIST changes: +DICLOFENAC SODI50 MG PO; +LUNESTA2 M1 PO
[2019-03-13] MEDS ORDERED: TIMOPTIC 0.25% O5 M1 EACH EYE (06:28)
[2019-03-13 06:43] VITALS: BP 123/72; Ht 172.7 cm; Wt 84.4 kg
--- NOTE | 2019-03-13 10:05 | NUR ---
UPON FURTHER ASSESSMENT PATIENT DENIES NUMBNESS/TINGLING TO ANY EXTREMITIES. SENSATIONS INTACT. MOVES ALL EXTREMITIES WITH PURPOSEFUL MOVEMENTS.
--- NOTE | 2019-03-13 10:41 | NUR ---
1030 TO 1385 VIA STRETCHER HOB 30 DEGREES STRIGHT, FAMILY AT SIDE, CALL LIGHT AT SIDE, EXPLAINED TO KEEP IN ALIGNMENT.
--- NOTE | 2019-04-18 08:07 | OP ---
PATIENT NAME: HENRY DELVALEL MEDICAL RECORD: [id number] :63 LOCATION:[facility] ADMISSION DATE: SURGEON: MILIND MACKEY MD DATE OF OPERATION: 03/13/2019 PREOPERATIVE DIAGNOSES: Left L5-S1 recurrent disc herniation with left S1 radiculopathy. POSTOPERATIVE DIAGNOSES: Left L5-S1 recurrent disc herniation with left S1 radiculopathy. PROCEDURE: Redo lumbar laminectomy, medial facetectomy, and foraminotomy at L5-S1 on the left with discectomy with METRx retractor. SURGEON: Milind Mackey MD DESCRIPTION AND TECHNIQUE: After induction of general endotracheal anesthesia, the patient was rolled prone on a Shiv frame. Lumbar spine was prepped and draped in usual sterile fashion. Fluoroscopic x-ray and spinal needle localized the L5-S1 interspace on the left side. A stab incision was created with a #11 blade and series of dilators were used to advance a METRx retractor to the L5-S1 interspace on the left side. Level was confirmed with fluoroscopic x-ray. A Midas Ran drill and microscope were used to extend the previous laminotomy laterally superior and inferior scar tissue. This was dissected away from the lateral gutters. Additional hypertrophied ligamentum flavum was removed with Cloward rongeurs at the lamina of L5 and S1. There is an obvious free fragment disc herniation within the axilla of the left S1 nerve root. This was removed with pituitary rongeurs. Following this, the S1 nerve root was decompressed well. No additional disc fragments were found in the spinal canal. Meticulous hemostasis was maintained throughout the wound. Wound was irrigated with copious amounts of Ancef irrigant solution. Retractors removed. The fascia was closed with interrupted 2-0 Vicryl suture, the subdermal layer closed with 3-0 Vicryl sutures. The skin was reapproximated with Steri-Strips and benzoin. A sterile dressing was applied to the wound. The patient was awakened in good condition and taken to recovery. All counts were reported as correct. Estimated blood loss was minimal. TRANSINT:[id number] Voice Confirmation ID: [id number] DOCUMENT ID: [id number] MILIND MACKEY MD at 0807 CC: [id number] DICTATION DATE: 04/12/19 1440 CERTIFIED NURSING ATTENDANT: 04/12/19 1525 [facility] [place] 03/13/19 [facility] [address] [place] [address]
== END 2019-03-13 13:20 | disposition home or self-care (01) ==
LOC: D.OPS 05:30 → D.PAN 07:30 → D.OPS 07:30
PROVIDERS: Anesthesiology; ATTEND Neurological Surgery
DX: M51.17 Intervertebral disc disorders with radiculopathy, lumbosacral region (principal)

== ENCOUNTER → 2019-10-17 13:46 | Outpatient (CLI) | payer OTHER ==
[2019-03-13 06:43] VITALS: BMI 28.3
[~2019-10-17 13:46] MED LIST changes: +TIMOPTIC 0.25% O5 M1 EACH EYE
--- NOTE | 2019-10-18 10:33 | EC ---
PATIENT:HENRY DELVALLE DATE OF SERVICE: 10/17/19 SEX: F MEDICAL RECORD: [id number] DATE OF : 63 LOCATION:[facility] AGE OF PATIENT: 54 ADMISSION DATE: 10/17/19 REFERRING PHYSICIAN: INTERPRETING PHYSICIAN: PER SCHROEDER MD ECHOCARDIOGRAM REPORT ECHO CHARGES 4 ECHO COMPLETE Date: 10/17/19 CLINICAL DIAGNOSIS: HTN ECHOCARDIOGRAPHIC MEASUREMENTS (adult normal given) AC root (d.<3.7cm) 3.4 cm LV Septum d (<1.2 cm> 1.5 cm Valve Excursion 1.9 cm LV Septum (systole) 1.7 cm Left Atria (s.<4.0cm> 3.3 cm LVPW d(<1.2cm) 1.5 cm RV (d.<2.3cm) 3.4 cm LVPW (sytole) 1.9 cm LV diastole(<5.6CM) 5.0 cm MV E-F(>70mm/sec) cm LV systole 2.9 cm LVOT Diameter 1.6 cm MV exc.(>10mm) 1.6 cm Est.ejection fraction (50-75%) % DOPPLER: LVIT cm/sec A 75.0 cm/sec E 67.0 cm/sec LA cm/sec RVSP 31 mmHg LVOT 129 cm/sec AOP1/2T m/s Asc. Ao 155 cm/sec RVOT 73 cm/sec RA cm/sec PA 120 cm/sec AV Gradient Peak 9.58 mmHg AV Mean 5.12 mmHg AV Area 1.7 cm MV Gradient Peak 2.75 mmHg MV Mean 0.93 mmHg MV Area cm COMMENTS: Technician Helper Instrument: 2 BRYON MATHEW Cement Storage Worker: 3 Dr. Fagan TAPE# PACS Pericardial Effusion N DATE OF SERVICE: Adequate 2D, color flow imaging, spectral Doppler, and M-Mode LVH is present. LV internal dimensions are normal. Wall motion is normal. EF is greater than or equal to 55%. Aortic valve is tricuspid. No evidence of stenosis by Doppler interrogation. Left atrium is normal. Mitral valve shows no prolapse. Trace MR. Right-sided chambers are grossly normal. Trace TR. TRANSINT:[id number] Voice Confirmation ID: [id number] DOCUMENT ID: [id number] ECHOCARDIOGRAM REPORT [id number] WEST,HENRY PER HYDE MD at 1033 CC: [id number] DICTATION DATE: 10/18/19820 PROJECT BUILDER: 10/18/19 1001 DEP CLI 10/17/19 [facility] [address] [place] [address]
== END | disposition home or self-care (01) ==
LOC: D.HCCECHO 10-05 09:30
PROVIDERS: ATTEND Internal Medicine Interventional Cardiology
DX: I10 Essential (primary) hypertension (principal)

== ENCOUNTER → 2019-10-31 12:37 | Outpatient (CLI) | payer OTHER ==
[2019-03-13 06:43] VITALS: BMI 28.3
[~2019-10-31 12:37] MED LIST changes: +HYDROCODON-ACE1 EA10 PO; +VALTREX1000 MG PO
== END | disposition home or self-care (01) ==
LOC: D.LABREF 12:37
PROVIDERS: ATTEND Internal Medicine Pulmonary Disease
DX: Z11.59 Encounter for screening for other viral diseases (principal)

== ENCOUNTER 2019-11-02 06:38 | Day surgery (SDC) | payer OTHER ==
[2019-10-31 14:54] LABS: HEMATOCRIT 36.3 % (36.0-48.0); HEMOGLOBIN 11.9 g/dL (12-16); MCH 31.8 pg (26.0-34.0); MCHC 32.8 g/dL (31.0-37.0); MCV 97.1 fL (80.0-100.0); MEAN PLATELET VOLUME 10.5 fL (7.4-10.4); RBC 3.74 10x6/uL (4.00-5.40); WBC 12.3 10x3/uL (4.8-10.8)
[2019-10-31 15:19] LABS: ANION GAP 14.9 mmol/L (8-16); CALCIUM 9.3 mg/dL (8.5-10.1); CARBON DIOXIDE 22.9 mmol/L (21.0-32.0); POTASSIUM - SERUM 3.8 mmol/L (3.5-5.1)
[~2019-11-02] VITALS: Ht 172.7 cm; Wt 80.9 kg
[~2019-11-02 06:38] MED LIST changes: -HYDROCODON-ACE1 EA10 PO
[2019-11-02 06:52] VITALS: BP 121/73; Ht 172.7 cm; Wt 80.9 kg
[2019-11-02] MEDS ORDERED: HYDROCODON-ACE1 EA10 PO (09:41)
--- NOTE | 2019-11-02 10:10 | NUR ---
UPON FURTHER ASSESSMENT PATIENT DENIES NUMBNESS/TINGLING IN ANY EXTREMITY. MOVES ALL EXTREMITIES WITH PURPOSEFUL MOVEMENTS. SENSATIONS INTACT.
--- NOTE | 2019-11-02 13:27 | NUR ---
1144-REPORTS PAIN 09/06.ADMINISTERED NORCO 10/325MG 1 BY MOUTH. VSS.NO DISTRESS.DENIES N/V.DERMABOND TO BACK CDI.
--- NOTE | 2019-11-02 13:28 | NUR ---
1210-PT DRESSED. VSS.NO DISTRESS.NO N/V.AMBULATED TO RR AND VOIDED WITHOUT COMPLICATIONS. REVIEWED POST OP INSTRUCTIONS AND FOLLOW UP APPOINTMENT. VERBALIZED UNDERSTANDING. ESCORTED OUT VIA W/C WITH SPOUSE AWAITING TO DRIVE HOME.
--- NOTE | 2019-11-02 13:28 | NUR ---
1150-REMOVED IV WITH CATH INTACT,DISPOSED INTO SHARPS,COVERED WITH MEDIPORE TAPE.
--- NOTE | 2019-11-27 13:10 | OP ---
PATIENT NAME: HENRY DELVALLE MEDICAL RECORD: [id number] :63 LOCATION:[facility] ADMISSION DATE: SURGEON: MILIND MACKEY MD DATE OF OPERATION: 11/02/2019 DATE OF SERVICE: 11/02/2019 PREOPERATIVE DIAGNOSES: Lumbar spinal stenosis and foraminal stenosis, L4-L5, right. POSTOPERATIVE DIAGNOSES: Lumbar spinal stenosis and foraminal stenosis, L4-L5, right. PROCEDURES: Lumbar laminotomy, medial facetectomy and foraminotomy, L4-L5, right with METRx retractor. SURGEON: Milind Mackey MD DESCRIPTION AND TECHNIQUE: After induction of general endotracheal anesthesia, the patient was rolled prone on Shiv frame. Lumbar spine was prepped and draped in usual sterile fashion. Fluoroscopic x-ray and spinal needle localized the L4-L5 interspace on the right side. After infiltration with 1:100,000 epinephrine with 1% lidocaine, a stab incision was created with a #11 blade. Series of dilators were used to advance a METRx retractor to the L4-L5 interspace on the right. Next, a Midas-Ran drill and a microscope was used to perform a laminotomy, medial facetectomy and foraminotomy L4-L5 on the right. Hypertrophied ligamentum flavum was removed with Cloward rongeurs. Following this, excellent decompression at L4-L5 nerve roots was accomplished. Meticulous hemostasis was maintained throughout the wound. Wound was irrigated with copious amounts of Ancef irrigant solution. The retractor was removed. The fascia was closed with 2-0 Vicryl suture, subdermal layer was closed with 3-0 Vicryl suture. Skin was closed with roxie. A sterile dressing was applied to the wound. The patient was awakened in good condition and taken to recovery. All counts were reported as correct. Estimated blood loss was minimal. TRANSINT:[id number] Voice Confirmation ID: [id number] DOCUMENT ID: [id number] MILIND MACKEY MD at 1310 CC: [id number] DICTATION DATE: 11/27/19 2053 BUSINESS ADMINISTRATION INSTRUCTOR: 11/27/19 1228 [facility] 11/02/19 [place] [address]
== END 2019-11-02 12:10 | disposition home or self-care (01) ==
LOC: D.OPS 06:38 → D.PAN 07:30 → D.OPS 12:10
PROVIDERS: Anesthesiology; ATTEND Neurological Surgery
DX: M48.061 Spinal stenosis, lumbar region without neurogenic claudication (principal); I10 Essential (primary) hypertension; E10.9 Type 1 diabetes mellitus without complications; E78.5 Hyperlipidemia, unspecified; M54.16 Radiculopathy, lumbar region; M53.86 Other specified dorsopathies, lumbar region; Z72.0 Tobacco use

== ENCOUNTER 2020-09-14 14:38 | Inpatient (IN) | payer OTHER ==
[~2020-09-14] VITALS: Ht 172.7 cm; Wt 80.7 kg
[~2020-09-14 14:38] MED LIST changes: +BUTRANS1 EAC2 TRANSDERM; -BUTRANS1 EAC3 TRANSDERM; +HYDROCODON-ACE1 EA10 PO
[2020-09-14] MEDS ORDERED: REXULTI1 MG PO (15:00)
[2020-09-14 15:11] LABS: BASOPHILS 0.3 % (0-2); EOSINOPHILS 0.8 % (0-7); HEMATOCRIT 39.2 % (36.0-48.0); HEMOGLOBIN 12.8 g/dL (12-16); IMMATURE GRANULOCYTES 0.3 % (0-5); LYMPHOCYTE ABS# 3.98 10x3/uL (1.18-3.74); LYMPHOCYTES 25.3 % (15-50); MCH 30.3 pg (26.0-34.0); MCHC 32.7 g/dL (31.0-37.0); MCV 92.7 fL (80.0-100.0); MEAN PLATELET VOLUME 10.6 fL (7.4-10.4); MONOCYTES 9.4 % (2-11); NEUTROPHIL ABS# 10.08 10x3/uL (1.56-6.13); NEUTROPHILS 63.9 % (40-80); PLATELET COUNT 352 10x3/uL (130-400); RBC 4.23 10x6/uL (4.00-5.40); RDW 15.5 % (11.5-14.5); WBC 15.8 10x3/uL (4.8-10.8)
[2020-09-14 15:21] LABS: INR 1.08 (0.85-1.17)
[2020-09-14 15:23] LABS: CALC OSMOLALITY 276 mosm/kg (275-300); CALCIUM 8.9 mg/dL (8.5-10.1); CARBON DIOXIDE 19.9 mmol/L (21.0-32.0); CHLORIDE - SERUM 95 mmol/L (98-107); CREATININE - SERUM 3.1 mg/dL (0.6-1.3); GLUCOSE 199 mg/dL (74-106); POTASSIUM - SERUM 3.7 mmol/L (3.5-5.1); SODIUM 130 mmol/L (136-145); UREA NITROGEN 41 mg/dL (7-18); eGFR NON AFRICAN AMERICAN 16 mL/min (90-120)
[2020-09-14 15:38] LABS: ALBUMIN 3.1 g/dL (3.4-5.0); ALKALINE PHOSPHATASE 134 U/L (30-120); ALT (SGPT) 50 U/L (10-68); BILIRUBIN - TOTAL 0.22 mg/dL (0.2-1.3); CKMB 13.2 U/L (0.0-3.6); CREATINE KINASE 465 UL (21-215); MAGNESIUM - SERUM 1.9 mg/dL (1.8-2.4); PROTEIN - SERUM 6.7 g/dL (6.4-8.2)
[2020-09-14 15:42] LABS: TROPONIN-I < 0.017 ng/mL (0.000-0.060)
--- NOTE | 2020-09-14 15:45 | NUR ---
PT TO CT
[2020-09-14 16:40] VITALS: BP 102/66
[2020-09-14 16:45] LABS: BILIRUBIN 2+ (NEGATIVE); KETONE NEGATIVE (NEGATIVE); NITRITE NEGATIVE (NEGATIVE); UROBILINOGEN NORMAL mg/dL (< 2); WHITE CELLS - URINE RARE HPF (0-4)
[2020-09-14 16:46] LABS: BACTERIA MODERATE HPF (NONE SEEN); SQUAMOUS EPITHELIAL 0-5 HPF (0-4)
[2020-09-14 18:27] VITALS: BP 124/67
--- NOTE | 2020-09-14 19:13 | NUR ---
REPORT GIVEN TO SHITAL PAUL
--- NOTE | 2020-09-14 19:38 | NUR ---
CONSULTED DR. EVANS, TELEPHONE ORDER FOR BLADDER SCAN AND IF RETAINING GREATER THAN 300 TO BROWN CATH.
[2020-09-14 19:55] VITALS: BP 147/83
--- NOTE | 2020-09-14 19:55 | NUR ---
ASSISTED PT TO BESIDE PER PT REQUEST.
--- NOTE | 2020-09-14 20:00 | NUR ---
BLADDER SCAN INDICATED NO RESIDUAL FLUID IN BLADDER AT THIS TIME.
[2020-09-14 20:09] VITALS: BP 156/81
--- NOTE | 2020-09-14 21:19 | NUR ---
PT ARRIVED VIA W/C. NO DISTRESS NOTED.
--- NOTE | 2020-09-14 21:35 | NUR ---
REPORT GIVEN TO FLOOR PRIOR TO THIS NURSE.
[2020-09-14 21:58] VITALS: BP 140/68
[2020-09-14 21:59] VITALS: BP 140/68; BMI 27.1
[2020-09-14 22:45] LABS: CKMB 10.3 U/L (0.0-3.6); CREATINE KINASE 354 UL (21-215); TROPONIN-I < 0.017 ng/mL (0.000-0.060)
--- NOTE | 2020-09-14 23:53 | NUR ---
ADMISSION ASSESSMENT, HISTORY AND HOME MED LIST COMPLETED BY 2210 HRS. PT HAS C/O BURT. ALERT AND ORIENTED TO PERSON, PLACE AND TIME. BLOOD. PALPABLE PERIPHERAL PULSES. EQUAL AND STRONG HEAD AND FOOT STRENGHT. IV TO LFA WITH NS AT 100CC/HR. IV PATETN. LUNGS CTA. LACERATION WITH SANCHO NOTED TO L SIDE OF HEAD. PM FSBS 203. 4 UNITS HUMALOG GIVEN SUB-Q TO ABS. LUNESTA GIVEN AT HS. PT CURRENTLY HAS C/O BURT. MIROHINE 4MG SIVP GIVEN. SR UP X2,CALL LIGHT WITHIN REACH AND BED ALARM ON.
--- NOTE | 2020-09-14 23:57 | NUR ---
PT HAS BUPRENEX PATCH TO Rah GLASER.
[2020-09-15 02:07] VITALS: BP 168/86
--- NOTE | 2020-09-15 04:30 | NUR ---
ASSISTED PT TO BR. GAIT STEADY. VOIDED LARGE AMOUNT OF YELLOW URINE. ASSISTED BACK TO BED. MORPHINE 4MG SIVP GIVEN FOR C/O BURT. SR UP X2, CALL LIGHT WITHIN REACH.
[2020-09-15 04:31] LABS: HEMOGLOBIN 11.3 g/dL (12-16)
[2020-09-15 04:32] LABS: BASOPHILS 0.2 % (0-2); EOSINOPHILS 1.8 % (0-7); HEMATOCRIT 35.2 % (36.0-48.0); IMMATURE GRANULOCYTES 0.4 % (0-5); LYMPHOCYTE ABS# 3.61 10x3/uL (1.18-3.74); LYMPHOCYTES 31.9 % (15-50); MCH 29.7 pg (26.0-34.0); MCHC 32.1 g/dL (31.0-37.0); MCV 92.6 fL (80.0-100.0); MEAN PLATELET VOLUME 10.9 fL (7.4-10.4); MONOCYTES 8.7 % (2-11); NEUTROPHIL ABS# 6.45 10x3/uL (1.56-6.13); PLATELET COUNT 285 10x3/uL (130-400); RDW 15.5 % (11.5-14.5)
[2020-09-15 04:41] LABS: WBC 11.3 10x3/uL (4.8-10.8)
[2020-09-15 05:01] LABS: ALBUMIN 2.8 g/dL (3.4-5.0); BILIRUBIN - TOTAL 0.18 mg/dL (0.2-1.3); CALCIUM 8.4 mg/dL (8.5-10.1); CARBON DIOXIDE 23.8 mmol/L (21.0-32.0); CHOL - HDL RATIO 5.7 ratio (2.3-4.1); LDL-HDL RATIO 2.2 ratio (1.5-3.5); MAGNESIUM - SERUM 1.6 mg/dL (1.8-2.4); PHOSPHOROUS 3.1 mg/dL (2.5-4.9); POTASSIUM - SERUM 3.8 mmol/L (3.5-5.1); PROTEIN - SERUM 6.1 g/dL (6.4-8.2); THYROID STIMULATING HORMONE 1.04 uIU/mL (0.36-3.74)
[2020-09-15 05:02] LABS: CREATININE - SERUM 1.5 mg/dL (0.6-1.3)
[2020-09-15 06:07] VITALS: BP 172/85
[2020-09-15 06:24] LABS: CKMB 7.6 U/L (0.0-3.6)
[2020-09-15 06:25] LABS: CREATINE KINASE 261 UL (21-215); TROPONIN-I < 0.017 ng/mL (0.000-0.060)
--- NOTE | 2020-09-15 07:00 | NUR ---
RECEIVED REPORT. ASSUMED CARE OF PATIENT. PATIENT RESTING IN BED WITH EYES OPEN, ALERT, ORIENTED. SR UP FOR SAFETY. WHITE BOARD UPDATED, BEDSIDE SHIFT REPORT COMPLETE. PATIENT DENIES ANY NEEDS AT THIS TIME. CALL LIGHT WITHIN REACH. NPO AT THIS TIME UNTIL SEEN BY CARDIOLOGY.
[2020-09-15 08:17] VITALS: BP 187/89
--- NOTE | 2020-09-15 08:55 | NUR ---
MEDICATED FOR PAIN AT THIS TIME.
--- NOTE | 2020-09-15 09:52 | NUR ---
TYLENOL NOT EFFECTIVE, MEDICATED WITH MORPHINE AND ZOFRAN AT THIS TIME.
[2020-09-15 11:00] LABS: CKMB 5.7 U/L (0.0-3.6); CREATINE KINASE 200 UL (21-215); TROPONIN-I < 0.017 ng/mL (0.000-0.060)
[2020-09-15] MEDS ORDERED: CIPRO500 MG PO (11:22)
--- NOTE | 2020-09-15 11:23 | NUR ---
FSBS 147. NO INSULIN PER SLIDING SCALE ADMINISTERED AT THIS TIME.
--- NOTE | 2020-09-15 11:23 | NUR ---
ASSISTED PATIENT TO RESTROOM AND BACK TO BED. APPLIED EGG CRATE MATTRESS TO PATIENT BED WHILE OOB TO RESTROOM FOR COMPLAINS OF BED HURTING HER BACK. PATIENT REPORTS ICEPACK TO HEAD HAS DECREASED PAIN TO AREA, IMPROVING HER HEADACHE.
--- NOTE | 2020-09-15 11:52 | NUR ---
SPOKE TO [facility] ANGEL ABOUT DISCHARGE ORDERS PLACED PATIENT IS BEING TREATED BY RENAL FOR ERAN, AWAITING FURTHER INSTRUCTIONS.
[2020-09-15 12:02] VITALS: BP 154/76
--- NOTE | 2020-09-15 12:29 | NUR ---
RENAL ADA DIET ORDERED TO ENSURE PATEINT IS ABLE TO KEEP PO INTAKE DOWN WITH N/V. PATIENT HAD POOR PO INTAKE X 3 DAYS PRIOR TO THIS HOSPITAL STAY DUE TO N/V/D.
[2020-09-15 13:02] VITALS: Ht 172.7 cm; Wt 80.7 kg
--- NOTE | 2020-09-15 15:43 | NUR ---
MEDICATED FOR PAIN. PATIENT HAS NO GENERAL TECHNICIAN AT THIS TIME DUE TO HER IS HERE HAVING SURGERY, FAMILY UNABLE TO PICK PATIENT UP UNTIL ABOUT 17-1800 THIS EVENING.
--- NOTE | 2020-09-15 16:17 | NUR ---
FSBS 191. INSULIN REFUSED. PATIENT STATES SHE WILL TAKE HER REGULAR INSULIN WHEN SHE GETS HOME TONIGHT AND HAS EATEN SOMETHING.
--- NOTE | 2020-09-15 18:30 | NUR ---
1715 22 GAUGE IV REMOVED FROM LEFT FOREARM. CATHETER TIP INTACT. NO BLEEDING FROM SITE. 2X2 GUAZE APPLIED AND SECURED WITH BANDAID. 1718 TELEMETRY REMOVED. 1730 DISCHARGE INSTRUCTIONS PROVIDED TO PATIENT AND HER SON. PATIENT VERBALIZED UNDERSTANDING OF ALL INSTRUCTIONS PROVIDED. 1745 PATIENT DISCHARGED TO HOME WITH HER SON. PATIENT LEFT UNIT VIA WHEELCHAIR WITH ALL PERSONAL BELONGINS. PATIENT IN NO DISTRESS UPON LEAVING UNIT. TELEMETRY RETURNED TO ICU LOGGING RAFTER LABORER ARIEL.
--- NOTE | 2020-09-16 17:03 | MORECARE ---
CASE MANAGEMENT DISCHARGE SUMMARY PATIENT: HENRY DELVALLE UNIT: [id number] ADM DATE: 09/14/20 AGE: 55 : 63 SEX: F ROOM/BED: D.[facility]5 AUTHOR: LLOYD,DOC PHYSICIAN: REFERRING PHYSICIAN: MARYCRUZ KNIGHT MD DATE OF SERVICE: 09/16/20 Case Management Discharge Planning Summary DCP REVIEW SUMMARY ANTICIPATED D/C DATE: EXPECTED LOS : 0 CASE STATUS: DCP Complete INITIAL REVIEW: 09/16/2020 INITIAL REVIEWER: Genevieve Hopson FINAL DISCHARGE DISPOSITION: 01 : Home or Self Care (Routine Discharge) FINAL REVIEWER: Genevieve Hopson FINAL REVIEW DATE: 09/16/2020 DCP Focus Questions & Answers QUESTION: ANSWER : PATIENT: HENRY DELVALLE ENCOUNTER: [id number] MEDICAL RECORD#: [id number] ADMISSION DATE: 09/14/2020 DISCHARGE DATE: 09/15/2020 ATTENDING MD: MARYCRUZ RAVI : AGE: 55 MARITAL STATUS: M DC PLAN ID: [id number] FACILITY: [facility] PRINTED ON: 09/16/20 17:03 CT All edits/amendments must be made on the electronic document DICTATION DATE: 09/16/201702 AUTOMOTIVE ELECTRICIAN HELPER: [id number] 09/16/201702 RPT#: [id number] DC DATE:09/15/20 STATUS: DIS IN [facility] [address] [place] [address] END OF REPORT
== END 2020-09-15 17:45 | disposition home or self-care (01) | DRG 683 ==
LOC: D.ER 14:38 → D.M2 18:15
PROVIDERS: Family Medicine; ADMIT Emergency Medicine; ATTEND Emergency Medicine
DX: N17.9 Acute kidney failure, unspecified (principal); N39.0 Urinary tract infection, site not specified; E87.1 Hypo-osmolality and hyponatremia; I95.9 Hypotension, unspecified; I10 Essential (primary) hypertension; E78.5 Hyperlipidemia, unspecified; F41.8 Other specified anxiety disorders; E10.40 Type 1 diabetes mellitus with diabetic neuropathy, unspecified; F17.200 Nicotine dependence, unspecified, uncomplicated; M19.90 Unspecified osteoarthritis, unspecified site; Z86.73 Personal history of transient ischemic attack (TIA), and cerebral infarction without residual deficits; R55 Syncope and collapse; K21.9 Gastro-esophageal reflux disease without esophagitis; I73.9 Peripheral vascular disease, unspecified; K52.9 Noninfective gastroenteritis and colitis, unspecified